=== PATIENT | female | born 1930 ===

== ENCOUNTER 2018-07-13 18:36 | Inpatient (IN) | payer MEDICARE ==
[~2018-07-13] VITALS: Ht 157.5 cm; Wt 61.7 kg
--- NOTE | 2018-07-13 22:48 | PDOC ---
Exam Note: Gume Note: Please also refer to the separate dictated note~for this date of service dictated separately. Discussed the patient with Nursing staff reviewed the chart.~Reviewed interim history and current functioning. Reviewed vital signs,~ Labs/ Radiology~and current medications noted below. Continue current treatment with the changes noted in the dictated addendum note Current Medications: I have reviewed the current psychotropics carefully including drug interactions. Risk benefit ratio favors no change other than as noted in my dictated progress note. JUAN PABLO GUTIERREZ MD Jul 13, 2018 22:48
[2018-07-13 23:24] VITALS: BP 166/76
[2018-07-13] MEDS ORDERED: MAGNESIUM HYDROXIDE 2,400 MG/30 ML ORAL.SUSP. PO PRN (23:30)
[2018-07-13] MEDS ORDERED: ACETAMINOPHEN 325 MG TABLET PO PRN (23:30)
[2018-07-13] MEDS ORDERED: MAG HYDROX/AL HYDROX/SIMETH 30 ML ORAL.SUSP PO PRN (23:30)
[2018-07-13] MEDS ORDERED: METHYL SALICYLATE/MENTHOL TOPICAL OINTMENT 29GM TUBE. TP PRN (23:30)
[2018-07-13] MEDS ORDERED: TRAM50TA PO (23:46)
[2018-07-13] MEDS ORDERED: HYDR-3165 PO (23:46)
[2018-07-13] MEDS ORDERED: IRON1CAP17 PO (23:46)
[2018-07-13] MEDS ORDERED: CITA20TA9 PO (23:46)
[2018-07-13] MEDS ORDERED: DONE10TA61 PO (23:46)
[2018-07-13] MEDS ORDERED: VENL150T PO (23:46)
[2018-07-13] MEDS ORDERED: PANT40TA3 PO (23:46)
[2018-07-13] MEDS ORDERED: MULT1TAB52 PO (23:46)
[2018-07-13] MEDS ORDERED: CYAN10005 PO (23:46)
[2018-07-13] MEDS ORDERED: MEMA10TA PO (23:46)
[2018-07-13] MEDS ORDERED: LEVO100T5 PO (23:46)
[2018-07-13] MEDS ORDERED: FURO20TA3 PO (23:46)
[2018-07-14] MEDS ORDERED: traMADol 50 MG TABLET PO PRN (01:15)
[2018-07-14 05:47] VITALS: BP 138/68
[2018-07-14 07:22] LABS: ALBUMIN 2.3 g/dL (3.4-5.0); ALBUMIN/GLOBULIN RATIO 0.7 (1.0-1.7); BASO % 0 % (0-3); CREATININE 0.9 mg/dL (0.6-1.0); EOS # 0.1 x10^3/uL (0.0-0.7); EOS % 3 % (0-3); GFR 59.4; HEMATOCRIT 28.7 % (36.0-47.0); HEMOGLOBIN 9.8 g/dL (12.0-15.5); LYMPH # 0.9 x10^3/uL (1.0-4.8); LYMPH % 31 % (24-48); MAGNESIUM 1.6 mg/dL (1.8-2.4); MEAN CORPUSCULAR HEMOGLOBIN 35 pg (25-35); MEAN CORPUSCULAR HGB CONC 34 g/dL (31-37); MEAN CORPUSCULAR VOLUME 103 fL (79-100); MONO # 0.4 x10^3/uL (0.0-1.1); MONO % 13 % (0-9); NEUT # 1.5 x10^3uL (1.8-7.7); NEUT % 53 % (31-73); PLATELET COUNT 65 x10^3/uL (140-400); POTASSIUM 3.6 mmol/L (3.5-5.1); RED CELL DISTRIBUTION WIDTH 13.4 % (11.5-14.5); TOTAL BILIRUBIN 0.7 mg/dL (0.2-1.0); TOTAL PROTEIN 5.8 g/dL (6.4-8.2); WHITE BLOOD COUNT 2.9 x10^3/uL (4.0-11.0)
[2018-07-14] MEDS ORDERED: LEVOTHYROXINE 100 MCG TABLET PO SCH (07:30)
[2018-07-14] MEDS: MEMANTINE 10 MG TABLET. PO SCH (08:12)
[2018-07-14] MEDS: MULTIVITAMIN with MINERAL TABLET. PO SCH (08:12)
[2018-07-14] MEDS: FUROSEMIDE 20 MG TABLET PO SCH (08:12)
[2018-07-14] MEDS: CYANOCOBALAMIN (VITAMIN B-12) 1,000 MCG TABLET. PO SCH (08:12)
[2018-07-14] MEDS: VENLAFAXINE 50 MG TABLET. PO SCH ×3 (08:12→19:26)
[2018-07-14] MEDS: DONEPEZIL HCL 10 MG TABLET PO SCH (08:13)
[2018-07-14] MEDS: VIT C PO SCH (08:33)
[2018-07-14] MEDS: SMZ/TMP 800/160MG TABLET. PO SCH ×2 (08:33→19:26)
[2018-07-14] MEDS: PS CMP PO SCH (08:33)
[2018-07-14] MEDS: CITALOPRAM 20 MG TABLET. PO SCH (08:33)
[2018-07-14] MEDS: PANTOPRAZOLE 40 MG TABLET. PO SCH ×2 (08:33→17:15)
[2018-07-14] MEDS: IRON FUM PO SCH (08:33)
[2018-07-14] MEDS: [UNRECOGNIZED DRUG - OTHER] PO SCH (08:33)
[2018-07-14] MEDS: B3 PO SCH (08:33)
[2018-07-14 16:10] VITALS: BP 128/52
[2018-07-14 18:28] LABS: THYROID STIM HORMONE (TSH) 0.111 uIU/mL (0.358-3.740)
--- NOTE | 2018-07-14 18:51 | PDOC2 ---
CONSULT Date of Admission DATE: 07/14/18 TIME: 18:43 Reason for Consult: Consult for medical management Referring Physician: Dr Balderas Chief Complaint Suicidal ideation and plan for self harm Source: Chart review Problem List Bipolar disorder , dementia History of Present Illness She lives with her daughter and started having SI with paln to harm herself, paranoid Cardiovascular: AFIB, CHF, HTN, hyperipidemia CENTRAL NERVOUS SYSTEM: Periperal neuropathy GI: GERD Past Surgical History: No pertinent history Family History: Other Smoke: No ALCOHOL: none Lives: with Family Current Medications Current Medications Acetaminophen (Tylenol) 650 mg PRN Q6HRS PRN PO PAIN / TEMP; Start 07/13/18 at 23:30 Multi-Ingredient Ointment (Analgesic [place]) 1 eleazar PRN QID PRN TP MUSCLE PAIN; Start 07/13/18 at 23:30 Al Hydroxide/Mg Hydroxide (Mylanta Plus Xs) 15 ml PRN AFTMEALHC PRN PO DYSPEPSIA; Start 07/13/18 at 23:30 Magnesium Hydroxide (Milk Of Magnesia) 2,400 mg PRN QHS PRN PO CONSTIPATION; Start 07/13/18 at 23:30 Citalopram Hydrobromide (CeleXA) 20 mg DAILY PO Last administered on at 08:33; Start 07/14/18 at 09:00 Cyanocobalamin (Vitamin B-12) 1,000 mcg DAILY PO Last administered on at 08:12; Start 07/14/18 at 09:00 Levothyroxine Sodium (Synthroid) 100 mcg DAILYAC PO Last administered on at 08:12; Start 07/14/18 at 07:30 Donepezil HCl (Aricept) 10 mg DAILY PO Last administered on 07/14/18at 08:13; Start 07/14/18 at 09:00 Memantine (Namenda) 10 mg DAILY PO Last administered on 07/14/18at 08:12; Start 07/14/18 at 09:00 Pantoprazole Sodium (Protonix) 40 mg BIDBFRMEAL PO Last administered on at 17:15; Start 07/14/18 at 07:30 Venlafaxine HCl (Effexor) 50 mg TID PO Last administered on 07/14/18at 14:33; Start 07/14/18 at 09:00 Furosemide (Lasix) 20 mg DAILY PO Last administered on 07/14/18at 08:12; Start 07/14/18 at 09:00 Tramadol HCl (Ultram) 50 mg PRN TID PRN PO PAIN; Start 07/14/18 at 01:15 Acetaminophen/ Hydrocodone Bitart (Lortab 5/325) 1 tab PRN Q6HRS PRN PO PAIN; Start 07/14/18 at 01:15 Non-Formulary Medication (Iron Fum & Ps Cmp/Fa/Vit C/B3 (Integra F Capsule)) 1 each DAILY PO ; Start 07/14/18 at 09:00; Status UNV Multivitamins/ Calcium (Thera-M Plus) 1 tab DAILY PO Last administered on 07/14at 08:12; Start 07/14/18 at 09:00 Trimethoprim/ Sulfamethoxazole (Bactrim Ds) 1 tab BID PO Last administered on 07/14/18at 08:33; Start 07/14/18 at 09:00 Active Scripts Active Reported Multivitamins (Multivitamin) 1 Each Tablet 1 Each PO DAILY Levothyroxine Sodium 100 Mcg Tablet 100 Mcg PO DAILYAC Vitamin B-12 (Cyanocobalamin (Vitamin B-12)) 1,000 Mcg Tablet 1,000 Mcg PO DAILY Celexa (Citalopram Hydrobromide) 20 Mg Tablet 20 Mg PO DAILY Tramadol Hcl (Tramadol HCl) 50 Mg Tablet 50 Mg PO PRN TID PRN Integra F Capsule (Iron Fum & Ps Cmp/Fa/Vit C/B3) 1 Each Capsule 1 Each PO DAILY Namenda (Memantine Hcl) 10 Mg Tablet 10 Mg PO DAILY Aricept (Donepezil Hcl) 10 Mg Tablet 10 Mg PO DAILY [place] 5-325 Tablet (Hydrocodone Bit/Acetaminophen) 1 Each Tablet 1 Tab PO PRN Q6HRS PRN Protonix (Pantoprazole Sodium) 40 Mg Tablet.dr 40 Mg PO BID Furosemide 20 Mg Tablet 20 Mg PO PRN DAILY PRN Venlafaxine Hcl Er (Venlafaxine Hcl) 150 Mg Tab.er.24 150 Mg PO DAILY Allergies: Coded Allergies: loratadine (Verified Allergy, Intermediate, 07/13/18) General: No acute distress HEENT: Atraumatic, PERRLA, EOMI, Mucous membr. moist/pink Heart: Regular rate Abdomen: Normal bowel sounds Extremities: No edema, Normal pulses VITALS Vital Signs Date Time Temp Pulse Resp B/P (MAP) Pulse Ox O2 Delivery O2 Flow Rate FiO2 07/14/18 16:10 97.8 77 20 128/52 (77) 96 Labs Laboratory Tests Test 07/14/18 06:15 White Blood Count 2.9 x10^3/uL (4.0-11.0) Red Blood Count 2.80 x10^6/uL (3.50-5.40) Hemoglobin 9.8 g/dL (12.0-15.5) Hematocrit 28.7 % (36.0-47.0) Mean Corpuscular Volume 103 fL (79-100) Mean Corpuscular Hemoglobin 35 pg (25-35) Mean Corpuscular Hemoglobin Concent 34 g/dL (31-37) Red Cell Distribution Width 13.4 % (11.5-14.5) Platelet Count 65 x10^3/uL (140-400) Neutrophils (%) (Auto) 53 % (31-73) Lymphocytes (%) (Auto) 31 % (24-48) Monocytes (%) (Auto) 13 % (0-9) Eosinophils (%) (Auto) 3 % (0-3) Basophils (%) (Auto) 0 % (0-3) Neutrophils # (Auto) 1.5 x10^3uL (1.8-7.7) Lymphocytes # (Auto) 0.9 x10^3/uL (1.0-4.8) Monocytes # (Auto) 0.4 x10^3/uL (0.0-1.1) Eosinophils # (Auto) 0.1 x10^3/uL (0.0-0.7) Basophils # (Auto) 0.0 x10^3/uL (0.0-0.2) Sodium Level 147 mmol/L (136-145) Potassium Level 3.6 mmol/L (3.5-5.1) Chloride Level 113 mmol/L (98-107) Carbon Dioxide Level 26 mmol/L (21-32) Anion Gap 8 (6-14) Blood Urea Nitrogen 11 mg/dL (7-20) Creatinine 0.9 mg/dL (0.6-1.0) Estimated GFR (Cockcroft-Gault) 59.4 BUN/Creatinine Ratio 12 (6-20) Glucose Level 80 mg/dL (70-99) Calcium Level 8.0 mg/dL (8.5-10.1) Magnesium Level 1.6 mg/dL (1.8-2.4) Iron Level 55 ug/dL (50-170) Total Iron Binding Capacity 162 ug/dL (250-450) Iron Saturation 34 % (15-34) Total Bilirubin 0.7 mg/dL (0.2-1.0) Aspartate Amino Transf (AST/SGOT) 41 U/L (15-37) Alanine Aminotransferase (ALT/SGPT) 20 U/L (14-59) Alkaline Phosphatase 118 U/L (46-116) Total Protein 5.8 g/dL (6.4-8.2) Albumin 2.3 g/dL (3.4-5.0) Albumin/Globulin Ratio 0.7 (1.0-1.7) Triglycerides Level 32 mg/dL (0-150) Cholesterol Level 148 mg/dL (0-200) LDL Cholesterol, Calculated 86 mg/dL (0-100) VLDL Cholesterol, Calculated 6 mg/dL (0-40) Non-HDL Cholesterol Calculated 92 mg/dL (0-129) HDL Cholesterol 56 mg/dL (40-60) Cholesterol/HDL Ratio 2.0 Vitamin B12 Level 1302 pg/mL (247-911) 25-Hydroxy Vitamin D Total 38.3 ng/mL (30-100) Thyroid Stimulating Hormone (TSH) 0.111 uIU/mL (0.358-3.740) Treponema pallidum Antibody Nonreactive (Nonreactive) Assessment/Plan Pancytopenia thyrotoxicosis FABIOLA PHELAN MD Jul 14, 2018 18:51
[2018-07-14 20:12] LABS: THYROXINE 4.5 ug/dL (4.5-12.0)
--- NOTE | 2018-07-14 22:44 | PDOC ---
Exam Note: Gume Note: Please also refer to the separate dictated note~for this date of service dictated separately.~Patient seen individually. Discussed the patient with Nursing staff reviewed the chart.~Reviewed interim history and current functioning. Reviewed vital signs,~Labs/ Radiology~and current medications noted below. Continue current treatment with the changes noted in the dictated addendum note Assessment: Vital Signs: Vital Signs Date Time Temp Pulse Resp B/P (MAP) Pulse Ox O2 Delivery O2 Flow Rate FiO2 07/14/18 16:10 97.8 77 20 128/52 (77) 96 Labs: Laboratory Tests Test 07/14/18 06:15 White Blood Count 2.9 x10^3/uL (4.0-11.0) L Red Blood Count 2.80 x10^6/uL (3.50-5.40) L Hemoglobin 9.8 g/dL (12.0-15.5) L Hematocrit 28.7 % (36.0-47.0) L Mean Corpuscular Volume 103 fL (79-100) H Mean Corpuscular Hemoglobin 35 pg (25-35) Mean Corpuscular Hemoglobin Concent 34 g/dL (31-37) Red Cell Distribution Width 13.4 % (11.5-14.5) Platelet Count 65 x10^3/uL (140-400) L Neutrophils (%) (Auto) 53 % (31-73) Lymphocytes (%) (Auto) 31 % (24-48) Monocytes (%) (Auto) 13 % (0-9) H Eosinophils (%) (Auto) 3 % (0-3) Basophils (%) (Auto) 0 % (0-3) Neutrophils # (Auto) 1.5 x10^3uL (1.8-7.7) L Lymphocytes # (Auto) 0.9 x10^3/uL (1.0-4.8) L Monocytes # (Auto) 0.4 x10^3/uL (0.0-1.1) Eosinophils # (Auto) 0.1 x10^3/uL (0.0-0.7) Basophils # (Auto) 0.0 x10^3/uL (0.0-0.2) Sodium Level 147 mmol/L (136-145) H Potassium Level 3.6 mmol/L (3.5-5.1) Chloride Level 113 mmol/L (98-107) H Carbon Dioxide Level 26 mmol/L (21-32) Anion Gap 8 (6-14) Blood Urea Nitrogen 11 mg/dL (7-20) Creatinine 0.9 mg/dL (0.6-1.0) Estimated GFR (Cockcroft-Gault) 59.4 BUN/Creatinine Ratio 12 (6-20) Glucose Level 80 mg/dL (70-99) Calcium Level 8.0 mg/dL (8.5-10.1) L Magnesium Level 1.6 mg/dL (1.8-2.4) L Iron Level 55 ug/dL (50-170) Total Iron Binding Capacity 162 ug/dL (250-450) L Iron Saturation 34 % (15-34) Total Bilirubin 0.7 mg/dL (0.2-1.0) Aspartate Amino Transferase (AST) 41 U/L (15-37) H Alanine Aminotransferase (ALT) 20 U/L (14-59) Alkaline Phosphatase 118 U/L (46-116) H Total Protein 5.8 g/dL (6.4-8.2) L Albumin 2.3 g/dL (3.4-5.0) L Albumin/Globulin Ratio 0.7 (1.0-1.7) L Triglycerides Level 32 mg/dL (0-150) Cholesterol Level 148 mg/dL (0-200) LDL Cholesterol, Calculated 86 mg/dL (0-100) VLDL Cholesterol, Calculated 6 mg/dL (0-40) Non-HDL Cholesterol Calculated 92 mg/dL (0-129) HDL Cholesterol 56 mg/dL (40-60) Cholesterol/HDL Ratio 2.0 Vitamin B12 Level 1302 pg/mL (247-911) H 25-Hydroxy Vitamin D Total 38.3 ng/mL (30-100) Thyroid Stimulating Hormone (TSH) 0.111 uIU/mL (0.358-3.740) Thyroxine (T4) 4.5 ug/dL (4.5-12.0) Total Triiodothyronine (TT3) 70 ng/dL (71-180) L Treponema pallidum Antibody Nonreactive (Nonreactive) Current Medications: Meds: Current Medications Acetaminophen (Tylenol) 650 mg PRN Q6HRS PRN PO PAIN / TEMP; Start 07/13/18 at 23:30 Multi-Ingredient Ointment (Analgesic [place]) 1 eleazar PRN QID PRN TP MUSCLE PAIN; Start 07/13/18 at 23:30 Al Hydroxide/Mg Hydroxide (Mylanta Plus Xs) 15 ml PRN AFTMEALHC PRN PO DYSPEPSIA; Start 07/13/18 at 23:30 Magnesium Hydroxide (Milk Of Magnesia) 2,400 mg PRN QHS PRN PO CONSTIPATION; Start 07/13/18 at 23:30 Citalopram Hydrobromide (CeleXA) 20 mg DAILY PO Last administered on at 08:33; Start 07/14/18 at 09:00 Cyanocobalamin (Vitamin B-12) 1,000 mcg DAILY PO Last administered on at 08:12; Start 07/14/18 at 09:00 Levothyroxine Sodium (Synthroid) 100 mcg DAILYAC PO Last administered on at 08:12; Start 07/14/18 at 07:30; Stop 07/14/18 at 18:53; Status DC Donepezil HCl (Aricept) 10 mg DAILY PO Last administered on 07/14/18at 08:13; Start 07/14/18 at 09:00 Memantine (Namenda) 10 mg DAILY PO Last administered on 07/14/18at 08:12; Start 07/14/18 at 09:00 Pantoprazole Sodium (Protonix) 40 mg BIDBFRMEAL PO Last administered on at 17:15; Start 07/14/18 at 07:30 Venlafaxine HCl (Effexor) 50 mg TID PO Last administered on 07/14/18at 19:26; Start 07/14/18 at 09:00 Furosemide (Lasix) 20 mg DAILY PO Last administered on 07/14/18at 08:12; Start 07/14/18 at 09:00 Tramadol HCl (Ultram) 50 mg PRN TID PRN PO PAIN; Start 07/14/18 at 01:15 Acetaminophen/ Hydrocodone Bitart (Lortab 5/325) 1 tab PRN Q6HRS PRN PO PAIN; Start 07/14/18 at 01:15 Non-Formulary Medication (Iron Fum & Ps Cmp/Fa/Vit C/B3 (Integra F Capsule)) 1 each DAILY PO ; Start 07/14/18 at 09:00; Status UNV Multivitamins/ Calcium (Thera-M Plus) 1 tab DAILY PO Last administered on 07/14at 08:12; Start 07/14/18 at 09:00 Trimethoprim/ Sulfamethoxazole (Bactrim Ds) 1 tab BID PO Last administered on 07/14/18at 19:26; Start 07/14/18 at 09:00 Levothyroxine Sodium (Synthroid) 50 mcg DAILY06 PO ; Start 07/15/18 at 06:00 Active Scripts Active Reported Multivitamins (Multivitamin) 1 Each Tablet 1 Each PO DAILY Levothyroxine Sodium 100 Mcg Tablet 100 Mcg PO DAILYAC Vitamin B-12 (Cyanocobalamin (Vitamin B-12)) 1,000 Mcg Tablet 1,000 Mcg PO DAILY Celexa (Citalopram Hydrobromide) 20 Mg Tablet 20 Mg PO DAILY Tramadol Hcl (Tramadol HCl) 50 Mg Tablet 50 Mg PO PRN TID PRN Integra F Capsule (Iron Fum & Ps Cmp/Fa/Vit C/B3) 1 Each Capsule 1 Each PO DAILY Namenda (Memantine Hcl) 10 Mg Tablet 10 Mg PO DAILY Aricept (Donepezil Hcl) 10 Mg Tablet 10 Mg PO DAILY [place] 5-325 Tablet (Hydrocodone Bit/Acetaminophen) 1 Each Tablet 1 Tab PO PRN Q6HRS PRN Protonix (Pantoprazole Sodium) 40 Mg Tablet.dr 40 Mg PO BID Furosemide 20 Mg Tablet 20 Mg PO PRN DAILY PRN Venlafaxine Hcl Er (Venlafaxine Hcl) 150 Mg Tab.er.24 150 Mg PO DAILY I have reviewed the current psychotropics carefully including drug interactions. Risk benefit ratio favors no change other than as noted in my dictated progress note. Diagnosis: Problems: (1) Anxiety disorder (2) Bipolar affective disorder, mixed (3) Dementia, vascular, with delusions (4) Dementia, vascular, with depression (5) Dementia in Alzheimer's disease with delusions (6) Dementia in Alzheimer's disease with depression (7) Impulse control disorder JUAN PABLO GUTIERREZ MD Jul 14, 2018 22:43
[2018-07-15 00:10] LABS: HEMOGLOBIN A1C <4.2 % (4.8-5.6)
[2018-07-15] MEDS: LEVOTHYROXINE 50 MCG TABLET PO SCH (04:55)
--- NOTE | 2018-07-15 05:35 | EKG ---
[address] [address] Test Date: 2018-07-14 Test Time: 04:36:49 Pat Name: KRIA LUCAS Department: Room: [address] [place] [address] Gender: F Events Administrative Assistant: YOGI : [id number] Requested By: JUAN PABLO GUTIERREZ Order Number: [id number] Reading MD: Vineet Whitt Measurements Intervals Success Rate: 83 P: 90 NE: 170 QRS: -13 QRSD: 84 T: 38 QT: 414 QTc: 487 Interpretive Statements SINUS RHYTHM VENTRICULAR PREMATURE COMPLEX(ES) LEFTWARD AXIS LOW LIMB LEAD VOLTAGE Electronically Signed On 07-20-2018 11:45:22 PUMPER GAGER APPRENTICE by Vineet Whitt
[2018-07-15 06:03] VITALS: BP 120/51
[2018-07-15] MEDS: PANTOPRAZOLE 40 MG TABLET. PO SCH ×2 (07:29→13:09)
[2018-07-15] MEDS: MULTIVITAMIN with MINERAL TABLET. PO SCH (07:29)
[2018-07-15] MEDS: DONEPEZIL HCL 10 MG TABLET PO SCH (07:29)
[2018-07-15] MEDS: MEMANTINE 10 MG TABLET. PO SCH (07:29)
[2018-07-15] MEDS: VENLAFAXINE 50 MG TABLET. PO SCH ×3 (07:29→19:41)
[2018-07-15] MEDS: SMZ/TMP 800/160MG TABLET. PO SCH (07:29)
[2018-07-15] MEDS: CYANOCOBALAMIN (VITAMIN B-12) 1,000 MCG TABLET. PO SCH (07:30)
[2018-07-15] MEDS: B3 PO SCH (07:30)
[2018-07-15] MEDS: [UNRECOGNIZED DRUG - OTHER] PO SCH (07:30)
[2018-07-15] MEDS: PS CMP PO SCH (07:30)
[2018-07-15] MEDS: IRON FUM PO SCH (07:30)
[2018-07-15] MEDS: CITALOPRAM 20 MG TABLET. PO SCH (07:30)
[2018-07-15] MEDS: FUROSEMIDE 20 MG TABLET PO SCH (07:30)
[2018-07-15] MEDS: VIT C PO SCH (07:30)
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
[2018-07-15] MEDS: LACTOBACILLUS RHAMNOSUS GG 1 CAPSULE. PO SCH ×2 (13:09→19:41)
--- NOTE | 2018-07-15 16:13 | RAD ---
CT HEAD INDICATION: MENTAL STATUS CHANGE COMPARISON: None Available. Exposure: One or more of the following individualized dose reduction techniques were utilized for this examination: 1. Automated exposure control 2. Adjustment of the mA and/or kV according to patient size 3. Use of iterative reconstruction technique TECHNIQUE: 5 mm contiguous axial images were obtained from the skull base to the vertex in both bone and soft tissue algorithm. FINDINGS: Mild bilateral periventricular white matter hypodensities likely chronic small vessel ischemic disease. No evidence of acute intracranial hemorrhage. No extra-axial fluid collections. No mass effect or midline shift. Ventricular size is appropriate. Basal cisterns are patent. No fractures identified.Graham-white differentiation is preserved.Globes and orbits are within normal limits. Paranasal sinuses and mastoid air cells are clear. IMPRESSION: No acute intracranial findings. Electronically signed by: Hubert Becker MD (07/15/2018 3:01 PM) [place] [id number]
[2018-07-15 16:38] VITALS: BP 122/68
[2018-07-15] MEDS: FERROUS SULFATE 325 MG TABLET. PO SCH (17:35)
[2018-07-15] MEDS: AMOXICILLIN 250 MG CAPSULE PO SCH (19:42)
--- NOTE | 2018-07-15 22:52 | PDOC ---
Exam Note: Gume Note: Please also refer to the separate dictated note~for this date of service dictated separately.~Patient seen individually. Discussed the patient with Nursing staff reviewed the chart.~Reviewed interim history and current functioning. Reviewed vital signs,~Labs/ Radiology~and current medications noted below. Continue current treatment with the changes noted in the dictated addendum note Assessment: Vital Signs: Vital Signs Date Time Temp Pulse Resp B/P (MAP) Pulse Ox O2 Delivery O2 Flow Rate FiO2 07/15/18 16:38 98.2 76 18 122/68 (86) 96 Room Air I&O Intake and Output 07/15/18 07:01 Intake Total 960 ml Balance 960 ml Intake Oral 960 ml Current Medications: Meds: Current Medications Acetaminophen (Tylenol) 650 mg PRN Q6HRS PRN PO PAIN / TEMP; Start 07/13/18 at 23:30 Multi-Ingredient Ointment (Analgesic [place]) 1 eleazar PRN QID PRN TP MUSCLE PAIN; Start 07/13/18 at 23:30 Al Hydroxide/Mg Hydroxide (Mylanta Plus Xs) 15 ml PRN AFTMEALHC PRN PO DYSPEPSIA; Start 07/13/18 at 23:30 Magnesium Hydroxide (Milk Of Magnesia) 2,400 mg PRN QHS PRN PO CONSTIPATION; Start 07/13/18 at 23:30 Citalopram Hydrobromide (CeleXA) 20 mg DAILY PO Last administered on at 07:30; Start 07/14/18 at 09:00; Stop 07/15/18 at 13:37; Status DC Cyanocobalamin (Vitamin B-12) 1,000 mcg DAILY PO Last administered on at 07:30; Start 07/14/18 at 09:00 Levothyroxine Sodium (Synthroid) 100 mcg DAILYAC PO Last administered on at 08:12; Start 07/14/18 at 07:30; Stop 07/14/18 at 18:53; Status DC Donepezil HCl (Aricept) 10 mg DAILY PO Last administered on 07/15/18at 07:29; Start 07/14/18 at 09:00 Memantine (Namenda) 10 mg DAILY PO Last administered on 07/15/18at 07:29; Start 07/14/18 at 09:00 Pantoprazole Sodium (Protonix) 40 mg BIDBFRMEAL PO Last administered on at 13:09; Start 07/14/18 at 07:30 Venlafaxine HCl (Effexor) 50 mg TID PO Last administered on 07/15/18at 19:41; Start 07/14/18 at 09:00 Furosemide (Lasix) 20 mg DAILY PO Last administered on 07/15/18at 07:30; Start 07/14/18 at 09:00 Tramadol HCl (Ultram) 50 mg PRN TID PRN PO PAIN; Start 07/14/18 at 01:15 Acetaminophen/ Hydrocodone Bitart (Lortab 5/325) 1 tab PRN Q6HRS PRN PO PAIN; Start 07/14/18 at 01:15 Non-Formulary Medication (Iron Fum & Ps Cmp/Fa/Vit C/B3 (Integra F Capsule)) 1 each DAILY PO ; Start 07/14/18 at 09:00; Stop 07/15/18 at 16:24; Status DC Multivitamins/ Calcium (Thera-M Plus) 1 tab DAILY PO Last administered on 07/15 07:29; Start 07/14/18 at 09:00 Trimethoprim/ Sulfamethoxazole (Bactrim Ds) 1 tab BID PO Last administered on 07/15/18at 07:29; Start 07/14/18 at 09:00; Stop 07/15/18 at 18:43; Status DC Levothyroxine Sodium (Synthroid) 50 mcg DAILY06 PO Last administered on at 04:55; Start 07/15/18 at 06:00 Lactobacillus Rhamnosus (Culturelle) 1 cap BID PO Last administered on 19:41; Start 07/15/18 at 09:00 Aripiprazole (Abilify) 2.5 mg DAILY PO ; Start 07/16/18 at 09:00 Ferrous Sulfate (Feosol) 325 mg BIDWMEALS PO Last administered on 07/15/18 17 :35; Start 07/15/18 at 17:00 Amoxicillin (Amoxil) 250 mg [id number] PO Last administered on 07/15/18 19:42; Start 07/15/18 at 21:00; Stop 07/22/18 at 22:00 Active Scripts Active Reported Multivitamins (Multivitamin) 1 Each Tablet 1 Each PO DAILY Levothyroxine Sodium 100 Mcg Tablet 100 Mcg PO DAILYAC Vitamin B-12 (Cyanocobalamin (Vitamin B-12)) 1,000 Mcg Tablet 1,000 Mcg PO DAILY Celexa (Citalopram Hydrobromide) 20 Mg Tablet 20 Mg PO DAILY Tramadol Hcl (Tramadol HCl) 50 Mg Tablet 50 Mg PO PRN TID PRN Integra F Capsule (Iron Fum & Ps Cmp/Fa/Vit C/B3) 1 Each Capsule 1 Each PO DAILY Namenda (Memantine Hcl) 10 Mg Tablet 10 Mg PO DAILY Aricept (Donepezil Hcl) 10 Mg Tablet 10 Mg PO DAILY [place] 5-325 Tablet (Hydrocodone Bit/Acetaminophen) 1 Each Tablet 1 Tab PO PRN Q6HRS PRN Protonix (Pantoprazole Sodium) 40 Mg Tablet.dr 40 Mg PO BID Furosemide 20 Mg Tablet 20 Mg PO PRN DAILY PRN Venlafaxine Hcl Er (Venlafaxine Hcl) 150 Mg Tab.er.24 150 Mg PO DAILY I have reviewed the current psychotropics carefully including drug interactions. Risk benefit ratio favors no change other than as noted in my dictated progress note. Diagnosis: Problems: (1) Anxiety disorder (2) Bipolar affective disorder, mixed (3) Dementia, vascular, with delusions (4) Dementia, vascular, with depression (5) Dementia in Alzheimer's disease with delusions (6) Dementia in Alzheimer's disease with depression (7) Impulse control disorder JUAN PABLO GUTIERREZ MD Jul 15, 2018 22:52
[2018-07-16] MEDS: LEVOTHYROXINE 50 MCG TABLET PO SCH (04:53)
[2018-07-16 05:42] VITALS: BP 156/64
[2018-07-16] MEDS: AMOXICILLIN 250 MG CAPSULE PO SCH ×3 (07:28→20:18)
[2018-07-16] MEDS: FERROUS SULFATE 325 MG TABLET. PO SCH ×2 (07:29→17:33)
[2018-07-16] MEDS: PANTOPRAZOLE 40 MG TABLET. PO SCH ×2 (07:29→16:30)
[2018-07-16] MEDS: MEMANTINE 10 MG TABLET. PO SCH ×3 (07:29→21:00)
[2018-07-16] MEDS: VENLAFAXINE 50 MG TABLET. PO SCH ×3 (07:29→20:17)
[2018-07-16] MEDS: CYANOCOBALAMIN (VITAMIN B-12) 1,000 MCG TABLET. PO SCH (07:29)
[2018-07-16] MEDS: DONEPEZIL HCL 10 MG TABLET PO SCH (07:29)
[2018-07-16] MEDS: LACTOBACILLUS RHAMNOSUS GG 1 CAPSULE. PO SCH ×2 (07:29→20:18)
[2018-07-16] MEDS: FUROSEMIDE 20 MG TABLET PO SCH (07:29)
[2018-07-16] MEDS: MULTIVITAMIN with MINERAL TABLET. PO SCH (07:29)
[2018-07-16] MEDS: ARIPiprazole 5 MG TABLET PO SCH (07:37)
[2018-07-16 15:45] VITALS: BP 114/59
--- NOTE | 2018-07-16 22:02 | PDOC ---
Exam Note: Gume Note: Please also refer to the separate dictated note~for this date of service dictated separately.~Patient seen individually. Discussed the patient with Nursing staff reviewed the chart.~Reviewed interim history and current functioning. Reviewed vital signs,~Labs/ Radiology~and current medications noted below. Continue current treatment with the changes noted in the dictated addendum note Assessment: Vital Signs: Vital Signs Date Time Temp Pulse Resp B/P (MAP) Pulse Ox O2 Delivery O2 Flow Rate FiO2 07/16/18 15:45 97.4 70 18 114/59 (77) 95 Room Air I&O Intake and Output 07/16/18 07:01 Intake Total 840 ml Balance 840 ml Intake Oral 840 ml Current Medications: Meds: Current Medications Acetaminophen (Tylenol) 650 mg PRN Q6HRS PRN PO PAIN / TEMP; Start 07/13/18 at 23:30 Multi-Ingredient Ointment (Analgesic [place]) 1 eleazar PRN QID PRN TP MUSCLE PAIN; Start 07/13/18 at 23:30 Al Hydroxide/Mg Hydroxide (Mylanta Plus Xs) 15 ml PRN AFTMEALHC PRN PO DYSPEPSIA; Start 07/13/18 at 23:30 Magnesium Hydroxide (Milk Of Magnesia) 2,400 mg PRN QHS PRN PO CONSTIPATION; Start 07/13/18 at 23:30 Citalopram Hydrobromide (CeleXA) 20 mg DAILY PO Last administered on at 07:30; Start 07/14/18 at 09:00; Stop 07/15/18 at 13:37; Status DC Cyanocobalamin (Vitamin B-12) 1,000 mcg DAILY PO Last administered on at 07:29; Start 07/14/18 at 09:00 Levothyroxine Sodium (Synthroid) 100 mcg DAILYAC PO Last administered on at 08:12; Start 07/14/18 at 07:30; Stop 07/14/18 at 18:53; Status DC Donepezil HCl (Aricept) 10 mg DAILY PO Last administered on 07/16/18at 07:29; Start 07/14/18 at 09:00 Memantine (Namenda) 10 mg DAILY PO Last administered on 07/16/18at 07:29; Start 07/14/18 at 09:00; Stop 07/16/18 at 20:19; Status DC Pantoprazole Sodium (Protonix) 40 mg BIDBFRMEAL PO Last administered on at 16:30; Start 07/14/18 at 07:30 Venlafaxine HCl (Effexor) 50 mg TID PO Last administered on 07/16/18at 20:17; Start 07/14/18 at 09:00 Furosemide (Lasix) 20 mg DAILY PO Last administered on 07/16/18at 07:29; Start 07/14/18 at 09:00 Tramadol HCl (Ultram) 50 mg PRN TID PRN PO PAIN; Start 07/14/18 at 01:15 Acetaminophen/ Hydrocodone Bitart (Lortab 5/325) 1 tab PRN Q6HRS PRN PO PAIN; Start 07/14/18 at 01:15 Non-Formulary Medication (Iron Fum & Ps Cmp/Fa/Vit C/B3 (Integra F Capsule)) 1 each DAILY PO ; Start 07/14/18 at 09:00; Stop 07/15/18 at 16:24; Status DC Multivitamins/ Calcium (Thera-M Plus) 1 tab DAILY PO Last administered on 07/16at 07:29; Start 07/14/18 at 09:00 Trimethoprim/ Sulfamethoxazole (Bactrim Ds) 1 tab BID PO Last administered on 07/15/18at 07:29; Start 07/14/18 at 09:00; Stop 07/15/18 at 18:43; Status DC Levothyroxine Sodium (Synthroid) 50 mcg DAILY06 PO Last administered on at 04:53; Start 07/15/18 at 06:00 Lactobacillus Rhamnosus (Culturelle) 1 cap BID PO Last administered on 20:18; Start 07/15/18 at 09:00 Aripiprazole (Abilify) 2.5 mg DAILY PO Last administered on 07/16/18at 07:37; Start 07/16/18 at 09:00 Ferrous Sulfate (Feosol) 325 mg BIDWMEALS PO Last administered on 07/16/18at 17 :33; Start 07/15/18 at 17:00 Amoxicillin (Amoxil) 250 mg [id number] PO Last administered on 12/29/18at 20:18; Start 07/15/18 at 21:00; Stop 07/22/18 at 22:00 Memantine (Namenda) 10 mg BID PO Last administered on 07/16/18at 20:27; Start 07/16/18 at 20:30 Active Scripts Active Reported Multivitamins (Multivitamin) 1 Each Tablet 1 Each PO DAILY Levothyroxine Sodium 100 Mcg Tablet 100 Mcg PO DAILYAC Vitamin B-12 (Cyanocobalamin (Vitamin B-12)) 1,000 Mcg Tablet 1,000 Mcg PO DAILY Celexa (Citalopram Hydrobromide) 20 Mg Tablet 20 Mg PO DAILY Tramadol Hcl (Tramadol HCl) 50 Mg Tablet 50 Mg PO PRN TID PRN Integra F Capsule (Iron Fum & Ps Cmp/Fa/Vit C/B3) 1 Each Capsule 1 Each PO DAILY Namenda (Memantine Hcl) 10 Mg Tablet 10 Mg PO DAILY Aricept (Donepezil Hcl) 10 Mg Tablet 10 Mg PO DAILY [place] 5-325 Tablet (Hydrocodone Bit/Acetaminophen) 1 Each Tablet 1 Tab PO PRN Q6HRS PRN Protonix (Pantoprazole Sodium) 40 Mg Tablet.dr 40 Mg PO BID Furosemide 20 Mg Tablet 20 Mg PO PRN DAILY PRN Venlafaxine Hcl Er (Venlafaxine Hcl) 150 Mg Tab.er.24 150 Mg PO DAILY I have reviewed the current psychotropics carefully including drug interactions. Risk benefit ratio favors no change other than as noted in my dictated progress note. Diagnosis: Problems: (1) Anxiety disorder (2) Bipolar affective disorder, mixed (3) Dementia, vascular, with delusions (4) Dementia, vascular, with depression (5) Dementia in Alzheimer's disease with delusions (6) Dementia in Alzheimer's disease with depression (7) Impulse control disorder JUAN PABLO GUTIERREZ MD Jul 16, 2018 22:02
[2018-07-17] MEDS: LEVOTHYROXINE 50 MCG TABLET PO SCH (06:12)
[2018-07-17 06:39] VITALS: BP 129/69
[2018-07-17] MEDS: VENLAFAXINE 50 MG TABLET. PO SCH ×3 (07:24→19:30)
[2018-07-17] MEDS: AMOXICILLIN 250 MG CAPSULE PO SCH ×3 (07:24→19:31)
[2018-07-17] MEDS: LACTOBACILLUS RHAMNOSUS GG 1 CAPSULE. PO SCH ×2 (07:24→19:30)
[2018-07-17] MEDS: MULTIVITAMIN with MINERAL TABLET. PO SCH (07:24)
[2018-07-17] MEDS: MEMANTINE 10 MG TABLET. PO SCH ×2 (07:24→19:30)
[2018-07-17] MEDS: FERROUS SULFATE 325 MG TABLET. PO SCH ×2 (07:24→17:00)
[2018-07-17] MEDS: DONEPEZIL HCL 10 MG TABLET PO SCH (07:24)
[2018-07-17] MEDS: CYANOCOBALAMIN (VITAMIN B-12) 1,000 MCG TABLET. PO SCH (07:25)
[2018-07-17] MEDS: FUROSEMIDE 20 MG TABLET PO SCH (07:25)
[2018-07-17] MEDS: ARIPiprazole 5 MG TABLET PO SCH (07:25)
[2018-07-17] MEDS: PANTOPRAZOLE 40 MG TABLET. PO SCH ×2 (07:25→17:00)
[2018-07-17 16:12] VITALS: BP 110/58
--- NOTE | 2018-07-17 23:14 | PDOC ---
Exam Note: Gume Note: Please also refer to the separate dictated note~for this date of service dictated separately.~Patient seen individually. Discussed the patient with Nursing staff reviewed the chart.~Reviewed interim history and current functioning. Reviewed vital signs,~Labs/ Radiology~and current medications noted below. Continue current treatment with the changes noted in the dictated addendum note Assessment: Vital Signs: Vital Signs Date Time Temp Pulse Resp B/P (MAP) Pulse Ox O2 Delivery O2 Flow Rate FiO2 07/17/18 16:12 98.2 70 19 110/58 (75) 94 07/17/18 06:39 Room Air 07/16/18 15:45 I&O Intake and Output 07/17/18 07:01 Intake Total 480 ml Balance 480 ml Intake Oral 480 ml # Bowel Movements 1 Current Medications: Meds: Current Medications Acetaminophen (Tylenol) 650 mg PRN Q6HRS PRN PO PAIN / TEMP; Start 07/13/18 at 23:30 Multi-Ingredient Ointment (Analgesic [place]) 1 eleazar PRN QID PRN TP MUSCLE PAIN; Start 07/13/18 at 23:30 Al Hydroxide/Mg Hydroxide (Mylanta Plus Xs) 15 ml PRN AFTMEALHC PRN PO DYSPEPSIA; Start 07/13/18 at 23:30 Magnesium Hydroxide (Milk Of Magnesia) 2,400 mg PRN QHS PRN PO CONSTIPATION; Start 07/13/18 at 23:30 Citalopram Hydrobromide (CeleXA) 20 mg DAILY PO Last administered on at 07:30; Start 07/14/18 at 09:00; Stop 07/15/18 at 13:37; Status DC Cyanocobalamin (Vitamin B-12) 1,000 mcg DAILY PO Last administered on at 07:25; Start 07/14/18 at 09:00 Levothyroxine Sodium (Synthroid) 100 mcg DAILYAC PO Last administered on at 08:12; Start 07/14/18 at 07:30; Stop 07/14/18 at 18:53; Status DC Donepezil HCl (Aricept) 10 mg DAILY PO Last administered on 07/17/18at 07:24; Start 07/14/18 at 09:00 Memantine (Namenda) 10 mg DAILY PO Last administered on 07/16/18 07:29; Start 07/14/18 at 09:00; Stop 07/16/18 at 20:19; Status DC Pantoprazole Sodium (Protonix) 40 mg BIDBFRMEAL PO Last administered on 17:00; Start 07/14/18 at 07:30 Venlafaxine HCl (Effexor) 50 mg TID PO Last administered on 07/17/18 19:30; Start 07/14/18 at 09:00; Stop 07/17/18 at 20:56; Status DC Furosemide (Lasix) 20 mg DAILY PO Last administered on 07/17/18 07:25; Start 07/14/18 at 09:00 Tramadol HCl (Ultram) 50 mg PRN TID PRN PO PAIN; Start 07/14/18 at 01:15 Acetaminophen/ Hydrocodone Bitart (Lortab 5/325) 1 tab PRN Q6HRS PRN PO PAIN; Start 07/14/18 at 01:15 Non-Formulary Medication (Iron Fum & Ps Cmp/Fa/Vit C/B3 (Integra F Capsule)) 1 each DAILY PO ; Start 07/14/18 at 09:00; Stop 07/15/18 at 16:24; Status DC Multivitamins/ Calcium (Thera-M Plus) 1 tab DAILY PO Last administered on 07/17at 07:24; Start 07/14/18 at 09:00 Trimethoprim/ Sulfamethoxazole (Bactrim Ds) 1 tab BID PO Last administered on 07/15/18 07:29; Start 07/14/18 at 09:00; Stop 07/15/18 at 18:43; Status DC Levothyroxine Sodium (Synthroid) 50 mcg DAILY06 PO Last administered on at 06:12; Start 07/15/18 at 06:00 Lactobacillus Rhamnosus (Culturelle) 1 cap BID PO Last administered on 19:30; Start 07/15/18 at 09:00 Aripiprazole (Abilify) 2.5 mg DAILY PO Last administered on 07/17/18 07:25; Start 07/16/18 at 09:00 Ferrous Sulfate (Feosol) 325 mg BIDWMEALS PO Last administered on 12/30/18at 17 :00; Start 07/15/18 at 17:00 Amoxicillin (Amoxil) 250 mg [id number] PO Last administered on 07/17/18at 19:31; Start 07/15/18 at 21:00; Stop 07/22/18 at 22:00 Memantine (Namenda) 10 mg BID PO Last administered on 07/17/18at 19:30; Start 07/16/18 at 20:30 Venlafaxine HCl (Effexor Xr) 150 mg DAILY PO ; Start 07/18/18 at 09:00 Active Scripts Active Reported Multivitamins (Multivitamin) 1 Each Tablet 1 Each PO DAILY Levothyroxine Sodium 100 Mcg Tablet 100 Mcg PO DAILYAC Vitamin B-12 (Cyanocobalamin (Vitamin B-12)) 1,000 Mcg Tablet 1,000 Mcg PO DAILY Celexa (Citalopram Hydrobromide) 20 Mg Tablet 20 Mg PO DAILY Tramadol Hcl (Tramadol HCl) 50 Mg Tablet 50 Mg PO PRN TID PRN Integra F Capsule (Iron Fum & Ps Cmp/Fa/Vit C/B3) 1 Each Capsule 1 Each PO DAILY Namenda (Memantine Hcl) 10 Mg Tablet 10 Mg PO DAILY Aricept (Donepezil Hcl) 10 Mg Tablet 10 Mg PO DAILY [place] 5-325 Tablet (Hydrocodone Bit/Acetaminophen) 1 Each Tablet 1 Tab PO PRN Q6HRS PRN Protonix (Pantoprazole Sodium) 40 Mg Tablet.dr 40 Mg PO BID Furosemide 20 Mg Tablet 20 Mg PO PRN DAILY PRN Venlafaxine Hcl Er (Venlafaxine Hcl) 150 Mg Tab.er.24 150 Mg PO DAILY I have reviewed the current psychotropics carefully including drug interactions. Risk benefit ratio favors no change other than as noted in my dictated progress note. Diagnosis: Problems: (1) Anxiety disorder (2) Bipolar affective disorder, mixed (3) Dementia, vascular, with delusions (4) Dementia, vascular, with depression (5) Dementia in Alzheimer's disease with delusions (6) Dementia in Alzheimer's disease with depression (7) Impulse control disorder JUAN PABLO GUTIERREZ MD Jul 17, 2018 23:14
[2018-07-18] MEDS: LEVOTHYROXINE 50 MCG TABLET PO SCH (05:03)
[2018-07-18 05:44] VITALS: BP 118/64
[2018-07-18] MEDS: AMOXICILLIN 250 MG CAPSULE PO SCH ×3 (07:35→20:07)
[2018-07-18] MEDS: PANTOPRAZOLE 40 MG TABLET. PO SCH ×2 (07:35→16:34)
[2018-07-18] MEDS: LACTOBACILLUS RHAMNOSUS GG 1 CAPSULE. PO SCH ×2 (07:36→20:08)
[2018-07-18] MEDS: MULTIVITAMIN with MINERAL TABLET. PO SCH (07:36)
[2018-07-18] MEDS: ARIPiprazole 5 MG TABLET PO SCH (07:36)
[2018-07-18] MEDS: CYANOCOBALAMIN (VITAMIN B-12) 1,000 MCG TABLET. PO SCH (07:36)
[2018-07-18] MEDS: DONEPEZIL HCL 10 MG TABLET PO SCH (07:37)
[2018-07-18] MEDS: FUROSEMIDE 20 MG TABLET PO SCH (07:37)
[2018-07-18] MEDS: FERROUS SULFATE 325 MG TABLET. PO SCH ×2 (07:37→16:34)
[2018-07-18] MEDS: MEMANTINE 10 MG TABLET. PO SCH ×2 (07:37→20:07)
[2018-07-18] MEDS: VENLAFAXINE XR 37.5 MG CAP.ER.24H. PO SCH (07:38)
[2018-07-18 16:50] VITALS: BP 127/66
--- NOTE | 2018-07-18 20:58 | PN ---
DATE: 07/15/2018 This is a late entry for 07/15/2018 and covers elements not covered in my initial note. SUBJECTIVE: I met with the patient in the evening in her room. She remains quite withdrawn and upset about her son-in-law and the interaction they had prior to her referral here and I processed this at length. REVIEW OF SYSTEMS: Ambulation impaired with walker. No CV, , pulmonary, eye, ENT system symptoms on review. MENTAL STATUS EXAM: Oriented to herself and situation. Speech coherent, abstraction fair, computation impaired, language function intact. Short term memory is impaired. The patient is quite delusional, believes her family stealing her money and the son-in-law used the "B" word. She often scratches her face and arms with anxiety, frustration. We will check a CT head. IMPRESSION: Major neurocognitive disorder, early Alzheimer, vascular with delusion bipolar 1 disorder, mixed with psychotic features. PLAN: Stop the Celexa given her bipolar history. Maintain Effexor 150 mg a day, Abilify 2.5 mg a day. Celexa has been stopped not so that we do not have mix it with Effexor. Rest unchanged including Aricept and Namenda. JUAN PABLO GUTIERREZ MD DR: AMILCAR/leighton JOB#: [id number] / [id number]
--- NOTE | 2018-07-18 22:47 | PDOC ---
Exam Note: Gume Note: Please also refer to the separate dictated note~for this date of service dictated separately.~Patient seen individually. Discussed the patient with Nursing staff reviewed the chart.~Reviewed interim history and current functioning. Reviewed vital signs,~Labs/ Radiology~and current medications noted below. Continue current treatment with the changes noted in the dictated addendum note Assessment: Vital Signs: Vital Signs Date Time Temp Pulse Resp B/P (MAP) Pulse Ox O2 Delivery O2 Flow Rate FiO2 07/18/18 16:50 97.1 78 18 127/66 (86) 99 07/17/18 06:39 Room Air 07/16/18 15:45 I&O Intake and Output 07/18/18 07:01 Intake Total 960 ml Balance 960 ml Intake Oral 960 ml Labs: Laboratory Tests Test 07/18/18 06:34 Free Thyroxine 0.86 ng/dL (0.76-1.46) Thyroxine (T4) 4.5 ug/dL (4.5-12.0) Current Medications: Meds: Current Medications Acetaminophen (Tylenol) 650 mg PRN Q6HRS PRN PO PAIN / TEMP; Start 07/13/18 at 23:30 Multi-Ingredient Ointment (Analgesic [place]) 1 eleazar PRN QID PRN TP MUSCLE PAIN; Start 07/13/18 at 23:30 Al Hydroxide/Mg Hydroxide (Mylanta Plus Xs) 15 ml PRN AFTMEALHC PRN PO DYSPEPSIA; Start 07/13/18 at 23:30 Magnesium Hydroxide (Milk Of Magnesia) 2,400 mg PRN QHS PRN PO CONSTIPATION; Start 07/13/18 at 23:30 Citalopram Hydrobromide (CeleXA) 20 mg DAILY PO Last administered on at 07:30; Start 07/14/18 at 09:00; Stop 07/15/18 at 13:37; Status DC Cyanocobalamin (Vitamin B-12) 1,000 mcg DAILY PO Last administered on at 07:36; Start 07/14/18 at 09:00 Levothyroxine Sodium (Synthroid) 100 mcg DAILYAC PO Last administered on at 08:12; Start 07/14/18 at 07:30; Stop 07/14/18 at 18:53; Status DC Donepezil HCl (Aricept) 10 mg DAILY PO Last administered on 07/18/18 07:37; Start 07/14/18 at 09:00 Memantine (Namenda) 10 mg DAILY PO Last administered on 07/16/18at 07:29; Start 07/14/18 at 09:00; Stop 07/16/18 at 20:19; Status DC Pantoprazole Sodium (Protonix) 40 mg BIDBFRMEAL PO Last administered on at 16:34; Start 07/14/18 at 07:30 Venlafaxine HCl (Effexor) 50 mg TID PO Last administered on 07/17/18 19:30; Start 07/14/18 at 09:00; Stop 07/17/18 at 20:56; Status DC Furosemide (Lasix) 20 mg DAILY PO Last administered on 07/18/18at 07:37; Start 07/14/18 at 09:00 Tramadol HCl (Ultram) 50 mg PRN TID PRN PO PAIN; Start 07/14/18 at 01:15 Acetaminophen/ Hydrocodone Bitart (Lortab 5/325) 1 tab PRN Q6HRS PRN PO PAIN; Start 07/14/18 at 01:15 Non-Formulary Medication (Iron Fum & Ps Cmp/Fa/Vit C/B3 (Integra F Capsule)) 1 each DAILY PO ; Start 07/14/18 at 09:00; Stop 07/15/18 at 16:24; Status DC Multivitamins/ Calcium (Thera-M Plus) 1 tab DAILY PO Last administered on 07/18at 07:36; Start 07/14/18 at 09:00 Trimethoprim/ Sulfamethoxazole (Bactrim Ds) 1 tab BID PO Last administered on 07/15/18at 07:29; Start 07/14/18 at 09:00; Stop 07/15/18 at 18:43; Status DC Levothyroxine Sodium (Synthroid) 50 mcg DAILY06 PO Last administered on 05:03; Start 07/15/18 at 06:00 Lactobacillus Rhamnosus (Culturelle) 1 cap BID PO Last administered on at 20:08; Start 07/15/18 at 09:00 Aripiprazole (Abilify) 2.5 mg DAILY PO Last administered on 07/18/18at 07:36; Start 07/16/18 at 09:00 Ferrous Sulfate (Feosol) 325 mg BIDWMEALS PO Last administered on 07/18/18at 16 :34; Start 07/15/18 at 17:00 Amoxicillin (Amoxil) 250 mg [id number] PO Last administered on 07/18/18at 20:07; Start 07/15/18 at 21:00; Stop 07/22/18 at 22:00 Memantine (Namenda) 10 mg BID PO Last administered on 07/18/18at 20:07; Start 07/16/18 at 20:30 Venlafaxine HCl (Effexor Xr) 150 mg DAILY PO Last administered on 07/18/18at 07 :38; Start 07/18/18 at 09:00 Active Scripts Active Reported Multivitamins (Multivitamin) 1 Each Tablet 1 Each PO DAILY Levothyroxine Sodium 100 Mcg Tablet 100 Mcg PO DAILYAC Vitamin B-12 (Cyanocobalamin (Vitamin B-12)) 1,000 Mcg Tablet 1,000 Mcg PO DAILY Celexa (Citalopram Hydrobromide) 20 Mg Tablet 20 Mg PO DAILY Tramadol Hcl (Tramadol HCl) 50 Mg Tablet 50 Mg PO PRN TID PRN Integra F Capsule (Iron Fum & Ps Cmp/Fa/Vit C/B3) 1 Each Capsule 1 Each PO DAILY Namenda (Memantine Hcl) 10 Mg Tablet 10 Mg PO DAILY Aricept (Donepezil Hcl) 10 Mg Tablet 10 Mg PO DAILY [place] 5-325 Tablet (Hydrocodone Bit/Acetaminophen) 1 Each Tablet 1 Tab PO PRN Q6HRS PRN Protonix (Pantoprazole Sodium) 40 Mg Tablet.dr 40 Mg PO BID Furosemide 20 Mg Tablet 20 Mg PO PRN DAILY PRN Venlafaxine Hcl Er (Venlafaxine Hcl) 150 Mg Tab.er.24 150 Mg PO DAILY I have reviewed the current psychotropics carefully including drug interactions. Risk benefit ratio favors no change other than as noted in my dictated progress note. Diagnosis: Problems: (1) Anxiety disorder (2) Bipolar affective disorder, mixed (3) Dementia, vascular, with delusions (4) Dementia, vascular, with depression (5) Dementia in Alzheimer's disease with delusions (6) Dementia in Alzheimer's disease with depression (7) Impulse control disorder JUAN PABLO GUTIERREZ MD Jul 18, 2018 22:47
--- NOTE | 2018-07-19 00:11 | PN ---
DATE: 07/17/2018 PSYCHIATRIC PROGRESS NOTE This late entry 07/17/2018 covers elements not covered in my initial note. SUBJECTIVE: I met with the patient in the evening. The patient slept 10 hours previous night. She remains somewhat withdrawn, but appropriate. Gets agitated, talking about relationship with her son-in-law. Somewhat forgetful. REVIEW OF SYSTEMS: No CV, , pulmonary, eye, ENT system symptoms on review. Gait unsteady with walker. MENTAL STATUS EXAM: Oriented to herself and situation. Speech coherent, abstraction fair, computation impaired, language function intact. Mood and affect still somewhat depressed, withdrawn. LABORATORY DATA: Reviewed. IMPRESSION: Unchanged from initial note. PLAN: No change from initial note. MAN Jorge GUTIERREZ MD DR: AMILCAR/leighton JOB#: [id number] / [id number]
--- NOTE | 2018-07-19 02:28 | PN ---
DATE: 07/16/2018 This is a late entry of 07/16/2018 covers elements not covered in my initial note. SUBJECTIVE: I met with the patient in the evening in her room. The patient slept 7 hours previous night. She has been somewhat withdrawn, spends much time in her room, tearful, talking about her son-in-law, problems interacting with him. CT head is negative. REVIEW OF SYSTEMS: No CV, , pulmonary, eye, ENT system symptoms on review. MENTAL STATUS EXAM: Oriented to herself and situation. Speech has some latency, coherent. Abstraction fair, computation impaired, language function intact. Mood and affect are somewhat withdrawn. LABORATORY DATA: Reviewed. IMPRESSION: Major neurocognitive disorder, Alzheimer, vascular with depression, bipolar 1 disorder, depressed. Rest unchanged. PLAN: No change from initial note. MAN Jorge GUTIERREZ MD DR: AMILCAR/leighton JOB#: [id number] / [id number]
[2018-07-19] MEDS: LEVOTHYROXINE 50 MCG TABLET PO SCH (06:01)
[2018-07-19 06:04] VITALS: BP 139/69
[2018-07-19] MEDS: MULTIVITAMIN with MINERAL TABLET. PO SCH (07:27)
[2018-07-19] MEDS: LACTOBACILLUS RHAMNOSUS GG 1 CAPSULE. PO SCH ×2 (07:27→20:13)
[2018-07-19] MEDS: PANTOPRAZOLE 40 MG TABLET. PO SCH ×2 (07:27→17:17)
[2018-07-19] MEDS: VENLAFAXINE XR 37.5 MG CAP.ER.24H. PO SCH (07:27)
[2018-07-19] MEDS: FERROUS SULFATE 325 MG TABLET. PO SCH ×2 (07:27→17:17)
[2018-07-19] MEDS: MEMANTINE 10 MG TABLET. PO SCH ×2 (07:28→20:13)
[2018-07-19] MEDS: CYANOCOBALAMIN (VITAMIN B-12) 1,000 MCG TABLET. PO SCH (07:28)
[2018-07-19] MEDS: DONEPEZIL HCL 10 MG TABLET PO SCH (07:28)
[2018-07-19] MEDS: AMOXICILLIN 250 MG CAPSULE PO SCH ×3 (07:28→20:13)
[2018-07-19] MEDS: ARIPiprazole 5 MG TABLET PO SCH (07:30)
[2018-07-19] MEDS: FUROSEMIDE 20 MG TABLET PO SCH (07:30)
[2018-07-19 16:29] VITALS: BP 125/59
--- NOTE | 2018-07-19 22:57 | PDOC ---
Exam Note: Gume Note: Please also refer to the separate dictated note~for this date of service dictated separately.~Patient seen individually. Discussed the patient with Nursing staff reviewed the chart.~Reviewed interim history and current functioning. Reviewed vital signs,~Labs/ Radiology~and current medications noted below. Continue current treatment with the changes noted in the dictated addendum note Assessment: Vital Signs: Vital Signs Date Time Temp Pulse Resp B/P (MAP) Pulse Ox O2 Delivery O2 Flow Rate FiO2 07/19/18 16:29 97.6 61 16 125/59 (81) 97 07/17/18 06:39 Room Air 07/16/18 15:45 I&O Intake and Output 07/19/18 07:01 Intake Total 720 ml Balance 720 ml Intake Oral 720 ml Current Medications: Meds: Current Medications Acetaminophen (Tylenol) 650 mg PRN Q6HRS PRN PO PAIN / TEMP; Start 07/13/18 at 23:30 Multi-Ingredient Ointment (Analgesic [place]) 1 eleazar PRN QID PRN TP MUSCLE PAIN; Start 07/13/18 at 23:30 Al Hydroxide/Mg Hydroxide (Mylanta Plus Xs) 15 ml PRN AFTMEALHC PRN PO DYSPEPSIA; Start 07/13/18 at 23:30 Magnesium Hydroxide (Milk Of Magnesia) 2,400 mg PRN QHS PRN PO CONSTIPATION; Start 07/13/18 at 23:30 Citalopram Hydrobromide (CeleXA) 20 mg DAILY PO Last administered on at 07:30; Start 07/14/18 at 09:00; Stop 07/15/18 at 13:37; Status DC Cyanocobalamin (Vitamin B-12) 1,000 mcg DAILY PO Last administered on 07/19/18at 07:28; Start 07/14/18 at 09:00 Levothyroxine Sodium (Synthroid) 100 mcg DAILYAC PO Last administered on at 08:12; Start 07/14/18 at 07:30; Stop 07/14/18 at 18:53; Status DC Donepezil HCl (Aricept) 10 mg DAILY PO Last administered on 07/19/18at 07:28; Start 07/14/18 at 09:00 Memantine (Namenda) 10 mg DAILY PO Last administered on 07/16/18at 07:29; Start 07/14/18 at 09:00; Stop 07/16/18 at 20:19; Status DC Pantoprazole Sodium (Protonix) 40 mg BIDBFRMEAL PO Last administered on 17:17; Start 07/14/18 at 07:30 Venlafaxine HCl (Effexor) 50 mg TID PO Last administered on 07/17/18 19:30; Start 07/14/18 at 09:00; Stop 07/17/18 at 20:56; Status DC Furosemide (Lasix) 20 mg DAILY PO Last administered on 07/19/18 07:30; Start 07/14/18 at 09:00 Tramadol HCl (Ultram) 50 mg PRN TID PRN PO PAIN; Start 07/14/18 at 01:15 Acetaminophen/ Hydrocodone Bitart (Lortab 5/325) 1 tab PRN Q6HRS PRN PO PAIN; Start 07/14/18 at 01:15 Non-Formulary Medication (Iron Fum & Ps Cmp/Fa/Vit C/B3 (Integra F Capsule)) 1 each DAILY PO ; Start 07/14/18 at 09:00; Stop 07/15/18 at 16:24; Status DC Multivitamins/ Calcium (Thera-M Plus) 1 tab DAILY PO Last administered on 07:27; Start 07/14/18 at 09:00 Trimethoprim/ Sulfamethoxazole (Bactrim Ds) 1 tab BID PO Last administered on 07/15/18at 07:29; Start 07/14/18 at 09:00; Stop 07/15/18 at 18:43; Status DC Levothyroxine Sodium (Synthroid) 50 mcg DAILY06 PO Last administered on 06:01; Start 07/15/18 at 06:00 Lactobacillus Rhamnosus (Culturelle) 1 cap BID PO Last administered on 20:13; Start 07/15/18 at 09:00 Aripiprazole (Abilify) 2.5 mg DAILY PO Last administered on 07/19/18 07:30; Start 07/16/18 at 09:00 Ferrous Sulfate (Feosol) 325 mg BIDWMEALS PO Last administered on 07/19/18 17: 17; Start 07/15/18 at 17:00 Amoxicillin (Amoxil) 250 mg [id number] PO Last administered on 07/19/18at 20:13; Start 07/15/18 at 21:00; Stop 07/22/18 at 22:00 Memantine (Namenda) 10 mg BID PO Last administered on 07/19/18at 20:13; Start at 20:30 Venlafaxine HCl (Effexor Xr) 150 mg DAILY PO Last administered on 07/19/18at 07: 27; Start 07/18/18 at 09:00 Active Scripts Active Reported Multivitamins (Multivitamin) 1 Each Tablet 1 Each PO DAILY Levothyroxine Sodium 100 Mcg Tablet 100 Mcg PO DAILYAC Vitamin B-12 (Cyanocobalamin (Vitamin B-12)) 1,000 Mcg Tablet 1,000 Mcg PO DAILY Celexa (Citalopram Hydrobromide) 20 Mg Tablet 20 Mg PO DAILY Tramadol Hcl (Tramadol HCl) 50 Mg Tablet 50 Mg PO PRN TID PRN Integra F Capsule (Iron Fum & Ps Cmp/Fa/Vit C/B3) 1 Each Capsule 1 Each PO DAILY Namenda (Memantine Hcl) 10 Mg Tablet 10 Mg PO DAILY Aricept (Donepezil Hcl) 10 Mg Tablet 10 Mg PO DAILY [place] 5-325 Tablet (Hydrocodone Bit/Acetaminophen) 1 Each Tablet 1 Tab PO PRN Q6HRS PRN Protonix (Pantoprazole Sodium) 40 Mg Tablet.dr 40 Mg PO BID Furosemide 20 Mg Tablet 20 Mg PO PRN DAILY PRN Venlafaxine Hcl Er (Venlafaxine Hcl) 150 Mg Tab.er.24 150 Mg PO DAILY I have reviewed the current psychotropics carefully including drug interactions. Risk benefit ratio favors no change other than as noted in my dictated progress note. Diagnosis: Problems: (1) Anxiety disorder (2) Bipolar affective disorder, mixed (3) Dementia, vascular, with delusions (4) Dementia, vascular, with depression (5) Dementia in Alzheimer's disease with delusions (6) Dementia in Alzheimer's disease with depression (7) Impulse control disorder JUAN PABLO GUTIERREZ MD Jul 19, 2018 22:57
--- NOTE | 2018-07-19 23:34 | PN ---
DATE: 07/18/2018 PSYCHIATRIC PROGRESS NOTE This is a late entry 07/18/2018 covers elements not covered in my initial note. SUBJECTIVE: I met with the patient at length in her room. Per nursing report, the patient slept 6-1/2 hours previous night. She has been calm, pleasant, blames her family for her predicament. Compliant with medications. She does have short term memory deficits. Discussed her family situation and feelings about her son-in-law at length individually. She is very verbal, expressive about this. REVIEW OF SYSTEMS: No CV, , pulmonary, eye, ENT system symptoms on review. Gait slightly unsteady with walker. MENTAL STATUS EXAM: Oriented to herself and situation. Speech has some latency, coherent. Abstraction fair, computation impaired, language function intact, attention span short. Mood and affect showing improvement. LABORATORY DATA: Reviewed. IMPRESSION: Unchanged from initial note. PLAN: No change from initial note. She is on Amoxil for her UTI and Aricept and Namenda for her memory deficits, Effexor XR 150 mg a day, being augmented with Abilify 2.5 mg a day for her mood symptoms. MAN Jorge GUTIERREZ MD DR: AMILCAR/leighton JOB#: [id number] / [id number]
[2018-07-20] MEDS: HYDROcodone/APAP 5/325MG 1 TAB TABLET PO PRN (05:19)
[2018-07-20] MEDS: LEVOTHYROXINE 50 MCG TABLET PO SCH (05:19)
[2018-07-20 05:37] VITALS: BP 151/71
[2018-07-20] MEDS: ARIPiprazole 5 MG TABLET PO SCH (08:11)
[2018-07-20] MEDS: DONEPEZIL HCL 10 MG TABLET PO SCH (08:11)
[2018-07-20] MEDS: PANTOPRAZOLE 40 MG TABLET. PO SCH ×2 (08:12→15:53)
[2018-07-20] MEDS: VENLAFAXINE XR 37.5 MG CAP.ER.24H. PO SCH (08:12)
[2018-07-20] MEDS: MEMANTINE 10 MG TABLET. PO SCH ×2 (08:12→19:40)
[2018-07-20] MEDS: FERROUS SULFATE 325 MG TABLET. PO SCH ×2 (08:12→15:53)
[2018-07-20] MEDS: LACTOBACILLUS RHAMNOSUS GG 1 CAPSULE. PO SCH ×2 (08:12→19:40)
[2018-07-20] MEDS: CYANOCOBALAMIN (VITAMIN B-12) 1,000 MCG TABLET. PO SCH (08:12)
[2018-07-20] MEDS: AMOXICILLIN 250 MG CAPSULE PO SCH ×3 (08:12→19:40)
[2018-07-20] MEDS: MULTIVITAMIN with MINERAL TABLET. PO SCH (08:12)
[2018-07-20] MEDS: FUROSEMIDE 20 MG TABLET PO SCH (08:13)
[2018-07-20 16:20] VITALS: BP 138/68
--- NOTE | 2018-07-20 22:48 | PDOC ---
Exam Note: Gume Note: Please also refer to the separate dictated note~for this date of service dictated separately.~Patient seen individually. Discussed the patient with Nursing staff reviewed the chart.~Reviewed interim history and current functioning. Reviewed vital signs,~Labs/ Radiology~and current medications noted below. Continue current treatment with the changes noted in the dictated addendum note Assessment: Vital Signs: Vital Signs Date Time Temp Pulse Resp B/P (MAP) Pulse Ox O2 Delivery O2 Flow Rate FiO2 07/20/18 16:20 98.0 77 16 138/68 (91) 96 Room Air 07/16/18 15:45 I&O Intake and Output 07/20/18 07:01 Intake Total 920 ml Balance 920 ml Intake Oral 920 ml Current Medications: Meds: Current Medications Acetaminophen (Tylenol) 650 mg PRN Q6HRS PRN PO PAIN / TEMP; Start 07/13/18 at 23:30 Multi-Ingredient Ointment (Analgesic [place]) 1 eleazar PRN QID PRN TP MUSCLE PAIN; Start 07/13/18 at 23:30 Al Hydroxide/Mg Hydroxide (Mylanta Plus Xs) 15 ml PRN AFTMEALHC PRN PO DYSPEPSIA; Start 07/13/18 at 23:30 Magnesium Hydroxide (Milk Of Magnesia) 2,400 mg PRN QHS PRN PO CONSTIPATION; Start 07/13/18 at 23:30 Citalopram Hydrobromide (CeleXA) 20 mg DAILY PO Last administered on at 07:30; Start 07/14/18 at 09:00; Stop 07/15/18 at 13:37; Status DC Cyanocobalamin (Vitamin B-12) 1,000 mcg DAILY PO Last administered on 07/20/18at 08:12; Start 07/14/18 at 09:00 Levothyroxine Sodium (Synthroid) 100 mcg DAILYAC PO Last administered on at 08:12; Start 07/14/18 at 07:30; Stop 07/14/18 at 18:53; Status DC Donepezil HCl (Aricept) 10 mg DAILY PO Last administered on 07/20/18at 08:11; Start 07/14/18 at 09:00 Memantine (Namenda) 10 mg DAILY PO Last administered on 07/16/18at 07:29; Start 07/14/18 at 09:00; Stop 07/16/18 at 20:19; Status DC Pantoprazole Sodium (Protonix) 40 mg BIDBFRMEAL PO Last administered on 15:53; Start 07/14/18 at 07:30 Venlafaxine HCl (Effexor) 50 mg TID PO Last administered on 07/17/18at 19:30; Start 07/14/18 at 09:00; Stop 07/17/18 at 20:56; Status DC Furosemide (Lasix) 20 mg DAILY PO Last administered on 07/20/18 08:13; Start 07/14/18 at 09:00 Tramadol HCl (Ultram) 50 mg PRN TID PRN PO PAIN; Start 07/14/18 at 01:15 Acetaminophen/ Hydrocodone Bitart (Lortab 5/325) 1 tab PRN Q6HRS PRN PO PAIN Last administered on 07/20/18 05:19; Start 07/14/18 at 01:15 Non-Formulary Medication (Iron Fum & Ps Cmp/Fa/Vit C/B3 (Integra F Capsule)) 1 each DAILY PO ; Start 07/14/18 at 09:00; Stop 07/15/18 at 16:24; Status DC Multivitamins/ Calcium (Thera-M Plus) 1 tab DAILY PO Last administered on 08:12; Start 07/14/18 at 09:00 Trimethoprim/ Sulfamethoxazole (Bactrim Ds) 1 tab BID PO Last administered on 07/15/18at 07:29; Start 07/14/18 at 09:00; Stop 07/15/18 at 18:43; Status DC Levothyroxine Sodium (Synthroid) 50 mcg DAILY06 PO Last administered on 05:19; Start 07/15/18 at 06:00 Lactobacillus Rhamnosus (Culturelle) 1 cap BID PO Last administered on 19:40; Start 07/15/18 at 09:00 Aripiprazole (Abilify) 2.5 mg DAILY PO Last administered on 07/20/18 08:11; Start 07/16/18 at 09:00 Ferrous Sulfate (Feosol) 325 mg BIDWMEALS PO Last administered on 07/20/18 15: 53; Start 07/15/18 at 17:00 Amoxicillin (Amoxil) 250 mg [id number] PO Last administered on 07/20/18 19:40; Start 07/15/18 at 21:00; Stop 07/22/18 at 22:00 Memantine (Namenda) 10 mg BID PO Last administered on 07/20/18 19:40; Start at 20:30 Venlafaxine HCl (Effexor Xr) 150 mg DAILY PO Last administered on 07/20/18 08: 12; Start 07/18/18 at 09:00 Active Scripts Active Reported Multivitamins (Multivitamin) 1 Each Tablet 1 Each PO DAILY Levothyroxine Sodium 100 Mcg Tablet 100 Mcg PO DAILYAC Vitamin B-12 (Cyanocobalamin (Vitamin B-12)) 1,000 Mcg Tablet 1,000 Mcg PO DAILY Celexa (Citalopram Hydrobromide) 20 Mg Tablet 20 Mg PO DAILY Tramadol Hcl (Tramadol HCl) 50 Mg Tablet 50 Mg PO PRN TID PRN Integra F Capsule (Iron Fum & Ps Cmp/Fa/Vit C/B3) 1 Each Capsule 1 Each PO DAILY Namenda (Memantine Hcl) 10 Mg Tablet 10 Mg PO DAILY Aricept (Donepezil Hcl) 10 Mg Tablet 10 Mg PO DAILY [place] 5-325 Tablet (Hydrocodone Bit/Acetaminophen) 1 Each Tablet 1 Tab PO PRN Q6HRS PRN Protonix (Pantoprazole Sodium) 40 Mg Tablet.dr 40 Mg PO BID Furosemide 20 Mg Tablet 20 Mg PO PRN DAILY PRN Venlafaxine Hcl Er (Venlafaxine Hcl) 150 Mg Tab.er.24 150 Mg PO DAILY I have reviewed the current psychotropics carefully including drug interactions. Risk benefit ratio favors no change other than as noted in my dictated progress note. Diagnosis: Problems: (1) Anxiety disorder (2) Bipolar affective disorder, mixed (3) Dementia, vascular, with delusions (4) Dementia, vascular, with depression (5) Dementia in Alzheimer's disease with delusions (6) Dementia in Alzheimer's disease with depression (7) Impulse control disorder JUAN PABLO GUTIERREZ MD Jul 20, 2018 22:48
--- NOTE | 2018-07-20 23:28 | PN ---
DATE: 07/19/2018 PSYCHIATRIC PROGRESS NOTE This late entry 07/19/2018 covers elements not covered in my initial note. SUBJECTIVE: I met with the patient in the evening. The patient slept 5-1/4 hours previous night. She has been somewhat withdrawn, but did come out for dinner and I met with her outside her room. She is still angry at her son-in-law for the negative interactions. They have had as detailed in my prior notes and we addressed this at some length. REVIEW OF SYSTEMS: No CV, , pulmonary, eye, ENT system symptoms on review. MENTAL STATUS EXAM: Oriented to herself and situation. Speech is coherent, abstraction fair, computation impaired, language function intact. Short term memory is impaired. No active suicidal or homicidal ideation. Mood is somewhat dysphoric, anxious. Affect is mood congruent. LABORATORY DATA: Reviewed. 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 Rest unchanged. PLAN: No change from initial note. MAN Jorge GUTIERREZ MD DR: AMILCAR/leighton JOB#: [id number] / [id number]
[2018-07-21 05:50] VITALS: BP 146/56
[2018-07-21] MEDS: LEVOTHYROXINE 50 MCG TABLET PO SCH (06:14)
[2018-07-21] MEDS: ARIPiprazole 5 MG TABLET PO SCH (07:59)
[2018-07-21] MEDS: FERROUS SULFATE 325 MG TABLET. PO SCH ×2 (07:59→16:45)
[2018-07-21] MEDS: MEMANTINE 10 MG TABLET. PO SCH ×2 (07:59→20:37)
[2018-07-21] MEDS: MULTIVITAMIN with MINERAL TABLET. PO SCH (07:59)
[2018-07-21] MEDS: PANTOPRAZOLE 40 MG TABLET. PO SCH ×2 (07:59→16:45)
[2018-07-21] MEDS: DONEPEZIL HCL 10 MG TABLET PO SCH (07:59)
[2018-07-21] MEDS: VENLAFAXINE XR 37.5 MG CAP.ER.24H. PO SCH (07:59)
[2018-07-21] MEDS: AMOXICILLIN 250 MG CAPSULE PO SCH ×3 (07:59→20:37)
[2018-07-21] MEDS: LACTOBACILLUS RHAMNOSUS GG 1 CAPSULE. PO SCH ×2 (07:59→20:37)
[2018-07-21] MEDS: FUROSEMIDE 20 MG TABLET PO SCH (07:59)
[2018-07-21] MEDS: CYANOCOBALAMIN (VITAMIN B-12) 1,000 MCG TABLET. PO SCH (07:59)
[2018-07-21 16:00] VITALS: BP 150/76
[2018-07-21] MEDS: DIVALPROEX ER 500 MG TAB.ER.24H PO SCH (20:38)
--- NOTE | 2018-07-21 22:57 | PDOC ---
Exam Note: Gume Note: Please also refer to the separate dictated note~for this date of service dictated separately.~Patient seen individually. Discussed the patient with Nursing staff reviewed the chart.~Reviewed interim history and current functioning. Reviewed vital signs,~Labs/ Radiology~and current medications noted below. Continue current treatment with the changes noted in the dictated addendum note Assessment: Vital Signs: Vital Signs Date Time Temp Pulse Resp B/P (MAP) Pulse Ox O2 Delivery O2 Flow Rate FiO2 07/21/18 16:00 97.3 77 18 150/76 (100) 98 Room Air 07/16/18 15:45 I&O Intake and Output 07/21/18 07:01 Intake Total 720 ml Balance 720 ml Intake Oral 720 ml # Voids 1 Current Medications: Meds: Current Medications Acetaminophen (Tylenol) 650 mg PRN Q6HRS PRN PO PAIN / TEMP; Start 07/13/18 at 23:30 Multi-Ingredient Ointment (Analgesic [place]) 1 eleazar PRN QID PRN TP MUSCLE PAIN; Start 07/13/18 at 23:30 Al Hydroxide/Mg Hydroxide (Mylanta Plus Xs) 15 ml PRN AFTMEALHC PRN PO DYSPEPSIA; Start 07/13/18 at 23:30 Magnesium Hydroxide (Milk Of Magnesia) 2,400 mg PRN QHS PRN PO CONSTIPATION; Start 07/13/18 at 23:30 Citalopram Hydrobromide (CeleXA) 20 mg DAILY PO Last administered on at 07:30; Start 07/14/18 at 09:00; Stop 07/15/18 at 13:37; Status DC Cyanocobalamin (Vitamin B-12) 1,000 mcg DAILY PO Last administered on 07/21/18at 07:59; Start 07/14/18 at 09:00 Levothyroxine Sodium (Synthroid) 100 mcg DAILYAC PO Last administered on at 08:12; Start 07/14/18 at 07:30; Stop 07/14/18 at 18:53; Status DC Donepezil HCl (Aricept) 10 mg DAILY PO Last administered on 07/21/18at 07:59; Start 07/14/18 at 09:00 Memantine (Namenda) 10 mg DAILY PO Last administered on 07/16/18at 07:29; Start 07/14/18 at 09:00; Stop 07/16/18 at 20:19; Status DC Pantoprazole Sodium (Protonix) 40 mg BIDBFRMEAL PO Last administered on 16:45; Start 07/14/18 at 07:30 Venlafaxine HCl (Effexor) 50 mg TID PO Last administered on 07/17/18at 19:30; Start 07/14/18 at 09:00; Stop 07/17/18 at 20:56; Status DC Furosemide (Lasix) 20 mg DAILY PO Last administered on 07/21/18 07:59; Start 07/14/18 at 09:00 Tramadol HCl (Ultram) 50 mg PRN TID PRN PO PAIN; Start 07/14/18 at 01:15 Acetaminophen/ Hydrocodone Bitart (Lortab 5/325) 1 tab PRN Q6HRS PRN PO PAIN Last administered on 07/20/18 05:19; Start 07/14/18 at 01:15 Non-Formulary Medication (Iron Fum & Ps Cmp/Fa/Vit C/B3 (Integra F Capsule)) 1 each DAILY PO ; Start 07/14/18 at 09:00; Stop 07/15/18 at 16:24; Status DC Multivitamins/ Calcium (Thera-M Plus) 1 tab DAILY PO Last administered on 07:59; Start 07/14/18 at 09:00 Trimethoprim/ Sulfamethoxazole (Bactrim Ds) 1 tab BID PO Last administered on 07/15/18at 07:29; Start 07/14/18 at 09:00; Stop 07/15/18 at 18:43; Status DC Levothyroxine Sodium (Synthroid) 50 mcg DAILY06 PO Last administered on 06:14; Start 07/15/18 at 06:00 Lactobacillus Rhamnosus (Culturelle) 1 cap BID PO Last administered on 20:37; Start 07/15/18 at 09:00 Aripiprazole (Abilify) 2.5 mg DAILY PO Last administered on 07/21/18 07:59; Start 07/16/18 at 09:00 Ferrous Sulfate (Feosol) 325 mg BIDWMEALS PO Last administered on 07/21/18 16: 45; Start 07/15/18 at 17:00 Amoxicillin (Amoxil) 250 mg [id number] PO Last administered on 07/21/18 20:37; Start 07/15/18 at 21:00; Stop 07/22/18 at 22:00 Memantine (Namenda) 10 mg BID PO Last administered on 07/21/18 20:37; Start at 20:30 Venlafaxine HCl (Effexor Xr) 150 mg DAILY PO Last administered on 07/21/18 07: 59; Start 07/18/18 at 09:00 Divalproex Sodium (Depakote Er) 500 mg QHS PO Last administered on 07/21/18 20: 38; Start 07/21/18 at 21:00 Active Scripts Active Reported Multivitamins (Multivitamin) 1 Each Tablet 1 Each PO DAILY Levothyroxine Sodium 100 Mcg Tablet 100 Mcg PO DAILYAC Vitamin B-12 (Cyanocobalamin (Vitamin B-12)) 1,000 Mcg Tablet 1,000 Mcg PO DAILY Celexa (Citalopram Hydrobromide) 20 Mg Tablet 20 Mg PO DAILY Tramadol Hcl (Tramadol HCl) 50 Mg Tablet 50 Mg PO PRN TID PRN Integra F Capsule (Iron Fum & Ps Cmp/Fa/Vit C/B3) 1 Each Capsule 1 Each PO DAILY Namenda (Memantine Hcl) 10 Mg Tablet 10 Mg PO DAILY Aricept (Donepezil Hcl) 10 Mg Tablet 10 Mg PO DAILY [place] 5-325 Tablet (Hydrocodone Bit/Acetaminophen) 1 Each Tablet 1 Tab PO PRN Q6HRS PRN Protonix (Pantoprazole Sodium) 40 Mg Tablet.dr 40 Mg PO BID Furosemide 20 Mg Tablet 20 Mg PO PRN DAILY PRN Venlafaxine Hcl Er (Venlafaxine Hcl) 150 Mg Tab.er.24 150 Mg PO DAILY I have reviewed the current psychotropics carefully including drug interactions. Risk benefit ratio favors no change other than as noted in my dictated progress note. Diagnosis: Problems: (1) Anxiety disorder (2) Bipolar affective disorder, mixed (3) Dementia, vascular, with delusions (4) Dementia, vascular, with depression (5) Dementia in Alzheimer's disease with delusions (6) Dementia in Alzheimer's disease with depression (7) Impulse control disorder JUAN PABLO GUTIERREZ MD Jul 21, 2018 22:57
[2018-07-22 05:38] VITALS: BP 131/63
[2018-07-22] MEDS: LEVOTHYROXINE 50 MCG TABLET PO SCH (05:57)
[2018-07-22] MEDS: ARIPiprazole 5 MG TABLET PO SCH (08:58)
[2018-07-22] MEDS: PANTOPRAZOLE 40 MG TABLET. PO SCH ×2 (08:58→16:18)
[2018-07-22] MEDS: FERROUS SULFATE 325 MG TABLET. PO SCH ×2 (08:58→16:18)
[2018-07-22] MEDS: VENLAFAXINE XR 37.5 MG CAP.ER.24H. PO SCH (08:59)
[2018-07-22] MEDS: LACTOBACILLUS RHAMNOSUS GG 1 CAPSULE. PO SCH ×2 (09:00→19:55)
[2018-07-22] MEDS: FUROSEMIDE 20 MG TABLET PO SCH (09:00)
[2018-07-22] MEDS: MEMANTINE 10 MG TABLET. PO SCH ×2 (09:00→19:54)
[2018-07-22] MEDS: CYANOCOBALAMIN (VITAMIN B-12) 1,000 MCG TABLET. PO SCH (09:00)
[2018-07-22] MEDS: MULTIVITAMIN with MINERAL TABLET. PO SCH (09:00)
[2018-07-22] MEDS: DONEPEZIL HCL 10 MG TABLET PO SCH (09:00)
[2018-07-22] MEDS: AMOXICILLIN 250 MG CAPSULE PO SCH ×3 (09:01→19:54)
[2018-07-22 16:50] VITALS: BP 132/65
--- NOTE | 2018-07-22 17:04 | PN ---
DATE: 07/20/2018 This late entry date of service 07/20/2017 covers elements not covered in my initial note. SUBJECTIVE: I met with the patient in the evening of 07/20/2018. The patient slept 6 hours previous evening. She is otherwise doing better, somewhat forgetful, confused, but no PRNs have been used. She remains on Amoxil for her UTI. REVIEW OF SYSTEMS: No CV, , pulmonary, eye, ENT system symptoms on review. MENTAL STATUS EXAM: Oriented to herself and situation. Speech is coherent, abstraction fair, computation impaired, language function intact, attention span short. Mood and affect remain somewhat anxious, at times labile, but improved. LABORATORY DATA: Reviewed. IMPRESSION: Unchanged from initial note. PLAN: No change from initial note. MAN Jorge GUTIERREZ MD DR: AMILCAR/leighton JOB#: [id number] / [id number]
[2018-07-22] MEDS: DIVALPROEX ER 500 MG TAB.ER.24H PO SCH (19:55)
--- NOTE | 2018-07-22 22:41 | PDOC ---
Exam Note: Gume Note: Please also refer to the separate dictated note~for this date of service dictated separately.~Patient seen individually. Discussed the patient with Nursing staff reviewed the chart.~Reviewed interim history and current functioning. Reviewed vital signs,~Labs/ Radiology~and current medications noted below. Continue current treatment with the changes noted in the dictated addendum note Assessment: Vital Signs: Vital Signs Date Time Temp Pulse Resp B/P (MAP) Pulse Ox O2 Delivery O2 Flow Rate FiO2 07/22/18 16:50 99.3 83 19 132/65 (87) 96 07/21/18 16:00 Room Air 07/16/18 15:45 I&O Intake and Output 07/22/18 07:01 Intake Total 840 ml Balance 840 ml Intake Oral 840 ml # Bowel Movements 1 Current Medications: Meds: Current Medications Acetaminophen (Tylenol) 650 mg PRN Q6HRS PRN PO PAIN / TEMP; Start 07/13/18 at 23:30 Multi-Ingredient Ointment (Analgesic [place]) 1 eleazar PRN QID PRN TP MUSCLE PAIN; Start 07/13/18 at 23:30 Al Hydroxide/Mg Hydroxide (Mylanta Plus Xs) 15 ml PRN AFTMEALHC PRN PO DYSPEPSIA; Start 07/13/18 at 23:30 Magnesium Hydroxide (Milk Of Magnesia) 2,400 mg PRN QHS PRN PO CONSTIPATION; Start 07/13/18 at 23:30 Citalopram Hydrobromide (CeleXA) 20 mg DAILY PO Last administered on at 07:30; Start 07/14/18 at 09:00; Stop 07/15/18 at 13:37; Status DC Cyanocobalamin (Vitamin B-12) 1,000 mcg DAILY PO Last administered on 07/22/18at 09:00; Start 07/14/18 at 09:00 Levothyroxine Sodium (Synthroid) 100 mcg DAILYAC PO Last administered on at 08:12; Start 07/14/18 at 07:30; Stop 07/14/18 at 18:53; Status DC Donepezil HCl (Aricept) 10 mg DAILY PO Last administered on 07/22/18 09:00; Start 07/14/18 at 09:00 Memantine (Namenda) 10 mg DAILY PO Last administered on 07/16/18 07:29; Start 07/14/18 at 09:00; Stop 07/16/18 at 20:19; Status DC Pantoprazole Sodium (Protonix) 40 mg BIDBFRMEAL PO Last administered on 16:18; Start 07/14/18 at 07:30 Venlafaxine HCl (Effexor) 50 mg TID PO Last administered on 07/17/18at 19:30; Start 07/14/18 at 09:00; Stop 07/17/18 at 20:56; Status DC Furosemide (Lasix) 20 mg DAILY PO Last administered on 07/22/18 09:00; Start 07/14/18 at 09:00 Tramadol HCl (Ultram) 50 mg PRN TID PRN PO PAIN; Start 07/14/18 at 01:15 Acetaminophen/ Hydrocodone Bitart (Lortab 5/325) 1 tab PRN Q6HRS PRN PO PAIN Last administered on 07/20/18 05:19; Start 07/14/18 at 01:15 Non-Formulary Medication (Iron Fum & Ps Cmp/Fa/Vit C/B3 (Integra F Capsule)) 1 each DAILY PO ; Start 07/14/18 at 09:00; Stop 07/15/18 at 16:24; Status DC Multivitamins/ Calcium (Thera-M Plus) 1 tab DAILY PO Last administered on 09:00; Start 07/14/18 at 09:00 Trimethoprim/ Sulfamethoxazole (Bactrim Ds) 1 tab BID PO Last administered on 07/15/18at 07:29; Start 07/14/18 at 09:00; Stop 07/15/18 at 18:43; Status DC Levothyroxine Sodium (Synthroid) 50 mcg DAILY06 PO Last administered on 05:57; Start 07/15/18 at 06:00 Lactobacillus Rhamnosus (Culturelle) 1 cap BID PO Last administered on 19:55; Start 07/15/18 at 09:00 Aripiprazole (Abilify) 2.5 mg DAILY PO Last administered on 07/22/18 08:58; Start 07/16/18 at 09:00 Ferrous Sulfate (Feosol) 325 mg BIDWMEALS PO Last administered on 07/22/18 16: 18; Start 07/15/18 at 17:00 Amoxicillin (Amoxil) 250 mg [id number] PO Last administered on 07/22/18 19:54; Start 07/15/18 at 21:00; Stop 07/22/18 at 22:00; Status DC Memantine (Namenda) 10 mg BID PO Last administered on 07/22/18 19:54; Start at 20:30 Venlafaxine HCl (Effexor Xr) 150 mg DAILY PO Last administered on 07/22/18 08: 59; Start 07/18/18 at 09:00 Divalproex Sodium (Depakote Er) 500 mg QHS PO Last administered on 07/22/18 19: 55; Start 07/21/18 at 21:00 Active Scripts Active Reported Multivitamins (Multivitamin) 1 Each Tablet 1 Each PO DAILY Levothyroxine Sodium 100 Mcg Tablet 100 Mcg PO DAILYAC Vitamin B-12 (Cyanocobalamin (Vitamin B-12)) 1,000 Mcg Tablet 1,000 Mcg PO DAILY Celexa (Citalopram Hydrobromide) 20 Mg Tablet 20 Mg PO DAILY Tramadol Hcl (Tramadol HCl) 50 Mg Tablet 50 Mg PO PRN TID PRN Integra F Capsule (Iron Fum & Ps Cmp/Fa/Vit C/B3) 1 Each Capsule 1 Each PO DAILY Namenda (Memantine Hcl) 10 Mg Tablet 10 Mg PO DAILY Aricept (Donepezil Hcl) 10 Mg Tablet 10 Mg PO DAILY [place] 5-325 Tablet (Hydrocodone Bit/Acetaminophen) 1 Each Tablet 1 Tab PO PRN Q6HRS PRN Protonix (Pantoprazole Sodium) 40 Mg Tablet.dr 40 Mg PO BID Furosemide 20 Mg Tablet 20 Mg PO PRN DAILY PRN Venlafaxine Hcl Er (Venlafaxine Hcl) 150 Mg Tab.er.24 150 Mg PO DAILY I have reviewed the current psychotropics carefully including drug interactions. Risk benefit ratio favors no change other than as noted in my dictated progress note. Diagnosis: Problems: (1) Anxiety disorder (2) Bipolar affective disorder, mixed (3) Dementia, vascular, with delusions (4) Dementia, vascular, with depression (5) Dementia in Alzheimer's disease with delusions (6) Dementia in Alzheimer's disease with depression (7) Impulse control disorder JUAN PABLO GUTIERREZ MD Jul 22, 2018 22:41
--- NOTE | 2018-07-23 04:06 | PN ---
DATE: 07/21/2018 PSYCHIATRIC PROGRESS NOTE This late entry 07/21/2018 covers elements not covered in my initial note. SUBJECTIVE: I met with the patient in the evening at length and staffed a treatment team meeting with the entire team in the morning and the patient's son, Ryan, attended the treatment team meeting at length. Reviewed the patient's history. The patient remains somewhat paranoid. Compliant with her medications. The patient remains suspicious that her family is going to turn her out onto the street. She will have no place to live. REVIEW OF SYSTEMS: Careful review of history from the past according to the son indicates symptoms reflective of bipolar disorder. She would have periods of time when she would spend excessively, become grandiose, manic, hyperverbal, would walk away from the [place] the highway, oblivious of the circumstances and risks. REVIEW OF SYSTEMS: No CV, , pulmonary, eye system symptoms on review. MENTAL STATUS EXAM: Oriented to herself and situation. Speech is coherent, rapid at times. Abstraction fair, computation impaired, language function intact. Short term memory is impaired. No active suicidal or homicidal ideation. LABORATORY DATA: Reviewed. IMPRESSION: Bipolar 1 disorder, mixed with psychotic features; cognitive disorder, unspecified versus major neurocognitive disorder, early Alzheimer, vascular with delusion. PLAN: Son reassured us that the son-in-law is very supportive of the patient extremely caring and just got frustrated with how the patient was presenting. They would be happy to have her back home post-discharge. We will go ahead and start Depakote ER 500 mg p.o. at bedtime. Check CBC, CMP, valproic acid level in 3 days for the bipolar disorder. Adjust to reach therapeutic level. Rest unchanged from initial note. MAN Jorge GUTIERREZ MD DR: AMILCAR/leighton JOB#: [id number] / [id number]
[2018-07-23] MEDS: LEVOTHYROXINE 50 MCG TABLET PO SCH (04:58)
[2018-07-23 05:43] VITALS: BP 162/67
[2018-07-23] MEDS: HYDROcodone/APAP 5/325MG 1 TAB TABLET PO PRN (05:55)
[2018-07-23] MEDS: LACTOBACILLUS RHAMNOSUS GG 1 CAPSULE. PO SCH ×2 (07:50→19:37)
[2018-07-23] MEDS: VENLAFAXINE XR 37.5 MG CAP.ER.24H. PO SCH (07:50)
[2018-07-23] MEDS: MEMANTINE 10 MG TABLET. PO SCH ×2 (07:50→19:37)
[2018-07-23] MEDS: PANTOPRAZOLE 40 MG TABLET. PO SCH ×2 (07:50→17:14)
[2018-07-23] MEDS: FERROUS SULFATE 325 MG TABLET. PO SCH ×2 (07:50→17:14)
[2018-07-23] MEDS: MULTIVITAMIN with MINERAL TABLET. PO SCH (07:50)
[2018-07-23] MEDS: DONEPEZIL HCL 10 MG TABLET PO SCH (07:51)
[2018-07-23] MEDS: CYANOCOBALAMIN (VITAMIN B-12) 1,000 MCG TABLET. PO SCH (07:51)
[2018-07-23] MEDS: FUROSEMIDE 20 MG TABLET PO SCH (07:51)
[2018-07-23] MEDS: ARIPiprazole 5 MG TABLET PO SCH (07:51)
[2018-07-23 16:17] VITALS: BP 136/53
[2018-07-23] MEDS: DIVALPROEX ER 500 MG TAB.ER.24H PO SCH (19:37)
--- NOTE | 2018-07-23 21:03 | PDOC ---
Exam Note: Gume Note: Please also refer to the separate dictated note~for this date of service dictated separately.~Patient seen individually. Discussed the patient with Nursing staff reviewed the chart.~Reviewed interim history and current functioning. Reviewed vital signs,~Labs/ Radiology~and current medications noted below. Continue current treatment with the changes noted in the dictated addendum note Assessment: Vital Signs: Vital Signs Date Time Temp Pulse Resp B/P (MAP) Pulse Ox O2 Delivery O2 Flow Rate FiO2 07/23/18 16:17 97.3 63 17 136/53 (80) 97 Room Air I&O Intake and Output 07/23/18 07:01 Intake Total 1085 ml Balance 1085 ml Intake Oral 1085 ml Current Medications: Meds: Current Medications Acetaminophen (Tylenol) 650 mg PRN Q6HRS PRN PO PAIN / TEMP; Start 07/13/18 at 23:30 Multi-Ingredient Ointment (Analgesic [place]) 1 eleazar PRN QID PRN TP MUSCLE PAIN; Start 07/13/18 at 23:30 Al Hydroxide/Mg Hydroxide (Mylanta Plus Xs) 15 ml PRN AFTMEALHC PRN PO DYSPEPSIA; Start 07/13/18 at 23:30 Magnesium Hydroxide (Milk Of Magnesia) 2,400 mg PRN QHS PRN PO CONSTIPATION; Start 07/13/18 at 23:30 Citalopram Hydrobromide (CeleXA) 20 mg DAILY PO Last administered on at 07:30; Start 07/14/18 at 09:00; Stop 07/15/18 at 13:37; Status DC Cyanocobalamin (Vitamin B-12) 1,000 mcg DAILY PO Last administered on 07/23/18at 07:51; Start 07/14/18 at 09:00 Levothyroxine Sodium (Synthroid) 100 mcg DAILYAC PO Last administered on at 08:12; Start 07/14/18 at 07:30; Stop 07/14/18 at 18:53; Status DC Donepezil HCl (Aricept) 10 mg DAILY PO Last administered on 07/23/18 07:51; Start 07/14/18 at 09:00 Memantine (Namenda) 10 mg DAILY PO Last administered on 07/16/18at 07:29; Start 07/14/18 at 09:00; Stop 07/16/18 at 20:19; Status DC Pantoprazole Sodium (Protonix) 40 mg BIDBFRMEAL PO Last administered on 17:14; Start 07/14/18 at 07:30 Venlafaxine HCl (Effexor) 50 mg TID PO Last administered on 07/17/18 19:30; Start 07/14/18 at 09:00; Stop 07/17/18 at 20:56; Status DC Furosemide (Lasix) 20 mg DAILY PO Last administered on 07/23/18 07:51; Start 07/14/18 at 09:00 Tramadol HCl (Ultram) 50 mg PRN TID PRN PO PAIN Last administered on 07/22/18 23:57; Start 07/14/18 at 01:15 Acetaminophen/ Hydrocodone Bitart (Lortab 5/325) 1 tab PRN Q6HRS PRN PO PAIN Last administered on 07/23/18 05:55; Start 07/14/18 at 01:15 Non-Formulary Medication (Iron Fum & Ps Cmp/Fa/Vit C/B3 (Integra F Capsule)) 1 each DAILY PO ; Start 07/14/18 at 09:00; Stop 07/15/18 at 16:24; Status DC Multivitamins/ Calcium (Thera-M Plus) 1 tab DAILY PO Last administered on 07:50; Start 07/14/18 at 09:00 Trimethoprim/ Sulfamethoxazole (Bactrim Ds) 1 tab BID PO Last administered on 07/15/18at 07:29; Start 07/14/18 at 09:00; Stop 07/15/18 at 18:43; Status DC Levothyroxine Sodium (Synthroid) 50 mcg DAILY06 PO Last administered on 04:58; Start 07/15/18 at 06:00 Lactobacillus Rhamnosus (Culturelle) 1 cap BID PO Last administered on 19:37; Start 07/15/18 at 09:00 Aripiprazole (Abilify) 2.5 mg DAILY PO Last administered on 07/23/18 07:51; Start 07/16/18 at 09:00 Ferrous Sulfate (Feosol) 325 mg BIDWMEALS PO Last administered on 07/23/18 17: 14; Start 07/15/18 at 17:00 Amoxicillin (Amoxil) 250 mg [id number] PO Last administered on 07/22/18 19:54; Start 07/15/18 at 21:00; Stop 07/22/18 at 22:00; Status DC Memantine (Namenda) 10 mg BID PO Last administered on 07/23/18 19:37; Start at 20:30 Venlafaxine HCl (Effexor Xr) 150 mg DAILY PO Last administered on 07/23/18 07: 50; Start 07/18/18 at 09:00 Divalproex Sodium (Depakote Er) 500 mg QHS PO Last administered on 07/23/18 19: 37; Start 07/21/18 at 21:00 Active Scripts Active Reported Multivitamins (Multivitamin) 1 Each Tablet 1 Each PO DAILY Levothyroxine Sodium 100 Mcg Tablet 100 Mcg PO DAILYAC Vitamin B-12 (Cyanocobalamin (Vitamin B-12)) 1,000 Mcg Tablet 1,000 Mcg PO DAILY Celexa (Citalopram Hydrobromide) 20 Mg Tablet 20 Mg PO DAILY Tramadol Hcl (Tramadol HCl) 50 Mg Tablet 50 Mg PO PRN TID PRN Integra F Capsule (Iron Fum & Ps Cmp/Fa/Vit C/B3) 1 Each Capsule 1 Each PO DAILY Namenda (Memantine Hcl) 10 Mg Tablet 10 Mg PO DAILY Aricept (Donepezil Hcl) 10 Mg Tablet 10 Mg PO DAILY [place] 5-325 Tablet (Hydrocodone Bit/Acetaminophen) 1 Each Tablet 1 Tab PO PRN Q6HRS PRN Protonix (Pantoprazole Sodium) 40 Mg Tablet.dr 40 Mg PO BID Furosemide 20 Mg Tablet 20 Mg PO PRN DAILY PRN Venlafaxine Hcl Er (Venlafaxine Hcl) 150 Mg Tab.er.24 150 Mg PO DAILY I have reviewed the current psychotropics carefully including drug interactions. Risk benefit ratio favors no change other than as noted in my dictated progress note. 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
--- NOTE | 2018-07-23 22:09 | PN ---
DATE: 07/23/2018 This note covers elements not covered in my initial note of 07/23/2018. SUBJECTIVE: I met with the patient in the evening in her room. The patient slept 8 hours previous night. She has been somewhat withdrawn, compliant with medication, but cooperative with case, not agitated. No suicidal ideation. We are going to check a valproic acid level in the morning. REVIEW OF SYSTEMS: Positive for some tiredness and she was in bed. No CV, , pulmonary, eye system symptoms on review. MENTAL STATUS EXAM: Oriented to herself and situation. Speech is coherent. Abstraction fair. Computation impaired. Language function intact. Attention span short. Mood and affect somewhat withdrawn. LABORATORY DATA: Reviewed. IMPRESSION: Bipolar 1 disorder, mixed with psychotic features; major neurocognitive disorder, early Alzheimer, vascular with depression. PLAN: Continue psychotropics mentioned in my initial note. We will check a valproic acid level, CBC, CMP in the morning. Adjust further as clinically indicated. Maintain Aricept, Namenda, Effexor, and Abilify for now together with Depakote. JUAN PABLO GUTIERREZ MD DR: AMILCAR/leighton JOB#: [id number] / [id number]
[2018-07-24] MEDS: LEVOTHYROXINE 50 MCG TABLET PO SCH (05:06)
[2018-07-24 06:03] VITALS: BP 136/68
[2018-07-24] MEDS: FERROUS SULFATE 325 MG TABLET. PO SCH ×2 (07:46→16:48)
[2018-07-24] MEDS: PANTOPRAZOLE 40 MG TABLET. PO SCH ×2 (07:46→16:48)
[2018-07-24] MEDS: DONEPEZIL HCL 10 MG TABLET PO SCH (07:46)
[2018-07-24] MEDS: MEMANTINE 10 MG TABLET. PO SCH ×2 (07:46→20:45)
[2018-07-24] MEDS: MULTIVITAMIN with MINERAL TABLET. PO SCH (07:46)
[2018-07-24] MEDS: VENLAFAXINE XR 37.5 MG CAP.ER.24H. PO SCH (07:46)
[2018-07-24] MEDS: LACTOBACILLUS RHAMNOSUS GG 1 CAPSULE. PO SCH ×2 (07:46→20:45)
[2018-07-24] MEDS: FUROSEMIDE 20 MG TABLET PO SCH (07:47)
[2018-07-24] MEDS: CYANOCOBALAMIN (VITAMIN B-12) 1,000 MCG TABLET. PO SCH (07:47)
[2018-07-24] MEDS: ARIPiprazole 5 MG TABLET PO SCH (07:48)
--- NOTE | 2018-07-24 10:16 | PN ---
DATE: 07/22/2018 PSYCHIATRIC PROGRESS NOTE This late entry 07/22/2018 covers elements not covered in my initial note. SUBJECTIVE: I met with the patient in the evening. The patient slept 6-1/2 hours previous night. She remains somewhat withdrawn, confused with short-term memory deficits, still depressed. REVIEW OF SYSTEMS: No CV, , pulmonary, eye, ENT system symptoms on review. Reliability varies. MENTAL STATUS EXAM: Oriented to herself and situation. Speech is coherent, rapid at times. Abstraction fair, computation impaired, language function intact, attention span short. Mood and affect remain somewhat anxious, labile at times. LABORATORY DATA: Reviewed. IMPRESSION: Bipolar 1 disorder, mixed, major neurocognitive disorder, Alzheimer, vascular with delusion. Rest unchanged. PLAN: Continue Aricept, Namenda, Effexor, and Abilify at current dosage, Depakote ER is 500 mg p.o. at bedtime. Check CBC, CMP, valproic acid level on 07/24/2018, then adjust Depakote to reach therapeutic level. We have attempted to get past psychiatric records from [facility] and they indicate they have no such records of her hospitalization from a psychiatric standpoint. We will check with the family to follow up. JUAN PABLO GUTIREREZ MD DR: AMILCAR/leighton JOB#: [id number] / [id number]
[2018-07-24 10:27] LABS: BASO % 1 % (0-3); EOS # 0.2 x10^3/uL (0.0-0.7); EOS % 5 % (0-3); HEMATOCRIT 33.9 % (36.0-47.0); HEMOGLOBIN 11.4 g/dL (12.0-15.5); LYMPH % 25 % (24-48); MEAN CORPUSCULAR HEMOGLOBIN 35 pg (25-35); MEAN CORPUSCULAR HGB CONC 34 g/dL (31-37); MEAN CORPUSCULAR VOLUME 104 fL (79-100); MONO # 0.4 x10^3/uL (0.0-1.1); MONO % 11 % (0-9); NEUT # 2.4 x10^3uL (1.8-7.7); NEUT % 59 % (31-73); PLATELET COUNT 82 x10^3/uL (140-400); RED BLOOD COUNT 3.26 x10^6/uL (3.50-5.40); RED CELL DISTRIBUTION WIDTH 14.1 % (11.5-14.5)
[2018-07-24 10:48] LABS: ALBUMIN 2.7 g/dL (3.4-5.0); ALBUMIN/GLOBULIN RATIO 0.6 (1.0-1.7); ALK PHOS 127 U/L (46-116); ALT (SGPT) 22 U/L (14-59); ANION GAP 9 (6-14); AST (SGOT) 52 U/L (15-37); BLOOD UREA NITROGEN 12 mg/dL (7-20); BUN/CREATININE RATIO 12 (6-20); CALCIUM 8.8 mg/dL (8.5-10.1); CARBON DIOXIDE 26 mmol/L (21-32); CHLORIDE 108 mmol/L (98-107); GFR 52.6; GLUCOSE 102 mg/dL (70-99); SODIUM 143 mmol/L (136-145); TOTAL BILIRUBIN 0.7 mg/dL (0.2-1.0); TOTAL PROTEIN 6.9 g/dL (6.4-8.2)
[2018-07-24 10:50] LABS: VAL ACID 63 mcg/mL (50-100)
[2018-07-24 11:04] LABS: PLT ESTIMATE DECREASED (ADEQUATE)
[2018-07-24 11:05] LABS: OVALOCYTES OCC
[2018-07-24 16:06] VITALS: BP 123/56
[2018-07-24] MEDS: DIVALPROEX ER 500 MG TAB.ER.24H PO SCH (20:45)
--- NOTE | 2018-07-24 22:43 | PDOC ---
Exam Note: Gume Note: Please also refer to the separate dictated note~for this date of service dictated separately.~Patient seen individually. Discussed the patient with Nursing staff reviewed the chart.~Reviewed interim history and current functioning. Reviewed vital signs,~Labs/ Radiology~and current medications noted below. Continue current treatment with the changes noted in the dictated addendum note Assessment: Vital Signs: Vital Signs Date Time Temp Pulse Resp B/P (MAP) Pulse Ox O2 Delivery O2 Flow Rate FiO2 07/24/18 16:06 97.8 90 20 123/56 (78) 98 07/24/18 06:03 Room Air I&O Intake and Output 07/24/18 07:01 Intake Total 1085 ml Balance 1085 ml Intake Oral 1085 ml Labs: Laboratory Tests Test 07/24/18 09:59 White Blood Count 4.0 x10^3/uL (4.0-11.0) Red Blood Count 3.26 x10^6/uL (3.50-5.40) L Hemoglobin 11.4 g/dL (12.0-15.5) L Hematocrit 33.9 % (36.0-47.0) L Mean Corpuscular Volume 104 fL (79-100) H Mean Corpuscular Hemoglobin 35 pg (25-35) Mean Corpuscular Hemoglobin Concent 34 g/dL (31-37) Red Cell Distribution Width 14.1 % (11.5-14.5) Platelet Count 82 x10^3/uL (140-400) L Neutrophils (%) (Auto) 59 % (31-73) Lymphocytes (%) (Auto) 25 % (24-48) Monocytes (%) (Auto) 11 % (0-9) H Eosinophils (%) (Auto) 5 % (0-3) H Basophils (%) (Auto) 1 % (0-3) Neutrophils # (Auto) 2.4 x10^3uL (1.8-7.7) Lymphocytes # (Auto) 1.0 x10^3/uL (1.0-4.8) Monocytes # (Auto) 0.4 x10^3/uL (0.0-1.1) Eosinophils # (Auto) 0.2 x10^3/uL (0.0-0.7) Basophils # (Auto) 0.0 x10^3/uL (0.0-0.2) Platelet Estimate Decreased (ADEQUATE) Large Platelets Occ Macrocytosis Slight Ovalocytes Occ Sodium Level 143 mmol/L (136-145) Potassium Level 4.0 mmol/L (3.5-5.1) Chloride Level 108 mmol/L (98-107) H Carbon Dioxide Level 26 mmol/L (21-32) Anion Gap 9 (6-14) Blood Urea Nitrogen 12 mg/dL (7-20) Creatinine 1.0 mg/dL (0.6-1.0) Estimated GFR (Cockcroft-Gault) 52.6 BUN/Creatinine Ratio 12 (6-20) Glucose Level 102 mg/dL (70-99) H Calcium Level 8.8 mg/dL (8.5-10.1) Total Bilirubin 0.7 mg/dL (0.2-1.0) Aspartate Amino Transferase (AST) 52 U/L (15-37) H Alanine Aminotransferase (ALT) 22 U/L (14-59) Alkaline Phosphatase 127 U/L (46-116) H Total Protein 6.9 g/dL (6.4-8.2) Albumin 2.7 g/dL (3.4-5.0) L Albumin/Globulin Ratio 0.6 (1.0-1.7) L Valproic Acid Level 63 mcg/mL (50-100) Valproic Acid Last Dose Date 07/23/18 Valproic Acid Last Dose Time 2100 Current Medications: Meds: Current Medications Acetaminophen (Tylenol) 650 mg PRN Q6HRS PRN PO PAIN / TEMP; Start 07/13/18 at 23:30 Multi-Ingredient Ointment (Analgesic [place]) 1 eleazar PRN QID PRN TP MUSCLE PAIN; Start 07/13/18 at 23:30 Al Hydroxide/Mg Hydroxide (Mylanta Plus Xs) 15 ml PRN AFTMEALHC PRN PO DYSPEPSIA; Start 07/13/18 at 23:30 Magnesium Hydroxide (Milk Of Magnesia) 2,400 mg PRN QHS PRN PO CONSTIPATION; Start 07/13/18 at 23:30 Citalopram Hydrobromide (CeleXA) 20 mg DAILY PO Last administered on at 07:30; Start 07/14/18 at 09:00; Stop 07/15/18 at 13:37; Status DC Cyanocobalamin (Vitamin B-12) 1,000 mcg DAILY PO Last administered on 07/24/18 07:47; Start 07/14/18 at 09:00 Levothyroxine Sodium (Synthroid) 100 mcg DAILYAC PO Last administered on at 08:12; Start 07/14/18 at 07:30; Stop 07/14/18 at 18:53; Status DC Donepezil HCl (Aricept) 10 mg DAILY PO Last administered on 07/24/18 07:46; Start 07/14/18 at 09:00 Memantine (Namenda) 10 mg DAILY PO Last administered on 07/16/18at 07:29; Start 07/14/18 at 09:00; Stop 07/16/18 at 20:19; Status DC Pantoprazole Sodium (Protonix) 40 mg BIDBFRMEAL PO Last administered on 16:48; Start 07/14/18 at 07:30 Venlafaxine HCl (Effexor) 50 mg TID PO Last administered on 07/17/18 19:30; Start 07/14/18 at 09:00; Stop 07/17/18 at 20:56; Status DC Furosemide (Lasix) 20 mg DAILY PO Last administered on 07/24/18 07:47; Start 07/14/18 at 09:00 Tramadol HCl (Ultram) 50 mg PRN TID PRN PO PAIN Last administered on 07/22/18 23:57; Start 07/14/18 at 01:15 Acetaminophen/ Hydrocodone Bitart (Lortab 5/325) 1 tab PRN Q6HRS PRN PO PAIN Last administered on 07/23/18 05:55; Start 07/14/18 at 01:15 Non-Formulary Medication (Iron Fum & Ps Cmp/Fa/Vit C/B3 (Integra F Capsule)) 1 each DAILY PO ; Start 07/14/18 at 09:00; Stop 07/15/18 at 16:24; Status DC Multivitamins/ Calcium (Thera-M Plus) 1 tab DAILY PO Last administered on 07:46; Start 07/14/18 at 09:00 Trimethoprim/ Sulfamethoxazole (Bactrim Ds) 1 tab BID PO Last administered on 07/15/18at 07:29; Start 07/14/18 at 09:00; Stop 07/15/18 at 18:43; Status DC Levothyroxine Sodium (Synthroid) 50 mcg DAILY06 PO Last administered on 05:06; Start 07/15/18 at 06:00 Lactobacillus Rhamnosus (Culturelle) 1 cap BID PO Last administered on 20:45; Start 07/15/18 at 09:00 Aripiprazole (Abilify) 2.5 mg DAILY PO Last administered on 07/24/18 07:48; Start 07/16/18 at 09:00 Ferrous Sulfate (Feosol) 325 mg BIDWMEALS PO Last administered on 07/24/18 16: 48; Start 07/15/18 at 17:00 Amoxicillin (Amoxil) 250 mg [id number] PO Last administered on 07/22/18 19:54; Start 07/15/18 at 21:00; Stop 07/22/18 at 22:00; Status DC Memantine (Namenda) 10 mg BID PO Last administered on 07/24/18 20:45; Start at 20:30 Venlafaxine HCl (Effexor Xr) 150 mg DAILY PO Last administered on 07/24/18 07: 46; Start 07/18/18 at 09:00 Divalproex Sodium (Depakote Er) 500 mg QHS PO Last administered on 07/24/18 20: 45; Start 07/21/18 at 21:00 Active Scripts Active Reported Multivitamins (Multivitamin) 1 Each Tablet 1 Each PO DAILY Levothyroxine Sodium 100 Mcg Tablet 100 Mcg PO DAILYAC Vitamin B-12 (Cyanocobalamin (Vitamin B-12)) 1,000 Mcg Tablet 1,000 Mcg PO DAILY Celexa (Citalopram Hydrobromide) 20 Mg Tablet 20 Mg PO DAILY Tramadol Hcl (Tramadol HCl) 50 Mg Tablet 50 Mg PO PRN TID PRN Integra F Capsule (Iron Fum & Ps Cmp/Fa/Vit C/B3) 1 Each Capsule 1 Each PO DAILY Namenda (Memantine Hcl) 10 Mg Tablet 10 Mg PO DAILY Aricept (Donepezil Hcl) 10 Mg Tablet 10 Mg PO DAILY [place] 5-325 Tablet (Hydrocodone Bit/Acetaminophen) 1 Each Tablet 1 Tab PO PRN Q6HRS PRN Protonix (Pantoprazole Sodium) 40 Mg Tablet.dr 40 Mg PO BID Furosemide 20 Mg Tablet 20 Mg PO PRN DAILY PRN Venlafaxine Hcl Er (Venlafaxine Hcl) 150 Mg Tab.er.24 150 Mg PO DAILY I have reviewed the current psychotropics carefully including drug interactions. Risk benefit ratio favors no change other than as noted in my dictated progress note. 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
[2018-07-25 05:41] VITALS: BP 153/63
[2018-07-25] MEDS: LEVOTHYROXINE 50 MCG TABLET PO SCH (06:02)
[2018-07-25] MEDS: LACTOBACILLUS RHAMNOSUS GG 1 CAPSULE. PO SCH ×2 (07:22→20:00)
[2018-07-25] MEDS: DONEPEZIL HCL 10 MG TABLET PO SCH (07:22)
[2018-07-25] MEDS: ARIPiprazole 5 MG TABLET PO SCH (07:22)
[2018-07-25] MEDS: VENLAFAXINE XR 37.5 MG CAP.ER.24H. PO SCH (07:22)
[2018-07-25] MEDS: FERROUS SULFATE 325 MG TABLET. PO SCH ×2 (07:22→16:39)
[2018-07-25] MEDS: MULTIVITAMIN with MINERAL TABLET. PO SCH (07:23)
[2018-07-25] MEDS: PANTOPRAZOLE 40 MG TABLET. PO SCH ×2 (07:23→16:39)
[2018-07-25] MEDS: MEMANTINE 10 MG TABLET. PO SCH ×2 (07:23→20:01)
[2018-07-25] MEDS: FUROSEMIDE 20 MG TABLET PO SCH (07:23)
[2018-07-25] MEDS: CYANOCOBALAMIN (VITAMIN B-12) 1,000 MCG TABLET. PO SCH (07:23)
[2018-07-25 16:05] VITALS: BP 166/74
[2018-07-25] MEDS: DIVALPROEX ER 500 MG TAB.ER.24H PO SCH (20:00)
--- NOTE | 2018-07-25 22:37 | PDOC ---
Exam Note: Gume Note: Please also refer to the separate dictated note~for this date of service dictated separately.~Patient seen individually. Discussed the patient with Nursing staff reviewed the chart.~Reviewed interim history and current functioning. Reviewed vital signs,~Labs/ Radiology~and current medications noted below. Continue current treatment with the changes noted in the dictated addendum note Assessment: Vital Signs: Vital Signs Date Time Temp Pulse Resp B/P (MAP) Pulse Ox O2 Delivery O2 Flow Rate FiO2 07/25/18 16:05 97.3 83 18 166/74 (104) 98 07/24/18 06:03 Room Air I&O Intake and Output 07/25/18 07:01 Intake Total 820 ml Balance 820 ml Intake Oral 820 ml Current Medications: Meds: Current Medications Acetaminophen (Tylenol) 650 mg PRN Q6HRS PRN PO PAIN / TEMP; Start 07/13/18 at 23:30 Multi-Ingredient Ointment (Analgesic [place]) 1 eleazar PRN QID PRN TP MUSCLE PAIN; Start 07/13/18 at 23:30 Al Hydroxide/Mg Hydroxide (Mylanta Plus Xs) 15 ml PRN AFTMEALHC PRN PO DYSPEPSIA; Start 07/13/18 at 23:30 Magnesium Hydroxide (Milk Of Magnesia) 2,400 mg PRN QHS PRN PO CONSTIPATION; Start 07/13/18 at 23:30 Citalopram Hydrobromide (CeleXA) 20 mg DAILY PO Last administered on at 07:30; Start 07/14/18 at 09:00; Stop 07/15/18 at 13:37; Status DC Cyanocobalamin (Vitamin B-12) 1,000 mcg DAILY PO Last administered on 07/25/18at 07:23; Start 07/14/18 at 09:00 Levothyroxine Sodium (Synthroid) 100 mcg DAILYAC PO Last administered on at 08:12; Start 07/14/18 at 07:30; Stop 07/14/18 at 18:53; Status DC Donepezil HCl (Aricept) 10 mg DAILY PO Last administered on 07/25/18at 07:22; Start 07/14/18 at 09:00 Memantine (Namenda) 10 mg DAILY PO Last administered on 07/16/18at 07:29; Start 07/14/18 at 09:00; Stop 07/16/18 at 20:19; Status DC Pantoprazole Sodium (Protonix) 40 mg BIDBFRMEAL PO Last administered on 16:39; Start 07/14/18 at 07:30 Venlafaxine HCl (Effexor) 50 mg TID PO Last administered on 07/17/18at 19:30; Start 07/14/18 at 09:00; Stop 07/17/18 at 20:56; Status DC Furosemide (Lasix) 20 mg DAILY PO Last administered on 07/25/18 07:23; Start 07/14/18 at 09:00 Tramadol HCl (Ultram) 50 mg PRN TID PRN PO PAIN Last administered on 07/22/18 23:57; Start 07/14/18 at 01:15 Acetaminophen/ Hydrocodone Bitart (Lortab 5/325) 1 tab PRN Q6HRS PRN PO PAIN Last administered on 07/23/18 05:55; Start 07/14/18 at 01:15 Non-Formulary Medication (Iron Fum & Ps Cmp/Fa/Vit C/B3 (Integra F Capsule)) 1 each DAILY PO ; Start 07/14/18 at 09:00; Stop 07/15/18 at 16:24; Status DC Multivitamins/ Calcium (Thera-M Plus) 1 tab DAILY PO Last administered on 07:23; Start 07/14/18 at 09:00 Trimethoprim/ Sulfamethoxazole (Bactrim Ds) 1 tab BID PO Last administered on 07/15/18at 07:29; Start 07/14/18 at 09:00; Stop 07/15/18 at 18:43; Status DC Levothyroxine Sodium (Synthroid) 50 mcg DAILY06 PO Last administered on 06:02; Start 07/15/18 at 06:00 Lactobacillus Rhamnosus (Culturelle) 1 cap BID PO Last administered on 20:00; Start 07/15/18 at 09:00 Aripiprazole (Abilify) 2.5 mg DAILY PO Last administered on 07/25/18 07:22; Start 07/16/18 at 09:00 Ferrous Sulfate (Feosol) 325 mg BIDWMEALS PO Last administered on 07/25/18 16: 39; Start 07/15/18 at 17:00 Amoxicillin (Amoxil) 250 mg [id number] PO Last administered on 07/22/18 19:54; Start 07/15/18 at 21:00; Stop 07/22/18 at 22:00; Status DC Memantine (Namenda) 10 mg BID PO Last administered on 07/25/18 20:01; Start at 20:30 Venlafaxine HCl (Effexor Xr) 150 mg DAILY PO Last administered on 07/25/18 07: 22; Start 07/18/18 at 09:00 Divalproex Sodium (Depakote Er) 500 mg QHS PO Last administered on 07/25/18 20: 00; Start 07/21/18 at 21:00 Active Scripts Active Reported Multivitamins (Multivitamin) 1 Each Tablet 1 Each PO DAILY Levothyroxine Sodium 100 Mcg Tablet 100 Mcg PO DAILYAC Vitamin B-12 (Cyanocobalamin (Vitamin B-12)) 1,000 Mcg Tablet 1,000 Mcg PO DAILY Celexa (Citalopram Hydrobromide) 20 Mg Tablet 20 Mg PO DAILY Tramadol Hcl (Tramadol HCl) 50 Mg Tablet 50 Mg PO PRN TID PRN Integra F Capsule (Iron Fum & Ps Cmp/Fa/Vit C/B3) 1 Each Capsule 1 Each PO DAILY Namenda (Memantine Hcl) 10 Mg Tablet 10 Mg PO DAILY Aricept (Donepezil Hcl) 10 Mg Tablet 10 Mg PO DAILY [place] 5-325 Tablet (Hydrocodone Bit/Acetaminophen) 1 Each Tablet 1 Tab PO PRN Q6HRS PRN Protonix (Pantoprazole Sodium) 40 Mg Tablet.dr 40 Mg PO BID Furosemide 20 Mg Tablet 20 Mg PO PRN DAILY PRN Venlafaxine Hcl Er (Venlafaxine Hcl) 150 Mg Tab.er.24 150 Mg PO DAILY I have reviewed the current psychotropics carefully including drug interactions. Risk benefit ratio favors no change other than as noted in my dictated progress note. 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
--- NOTE | 2018-07-25 23:38 | PN ---
DATE: 07/24/2018 PSYCHIATRIC PROGRESS NOTE This late entry 07/24/2018 covers elements, not covered in my initial note. SUBJECTIVE: I met with the patient in the evening. The patient slept 9 hours previous night. She has been up for meals, otherwise, withdrawn. Valproic acid level is 63. REVIEW OF SYSTEMS: No CV, , pulmonary, eye, ENT system symptoms on review. Gait unsteady with walker. Reliability varies. MENTAL STATUS EXAM: Oriented to herself and situation. Speech has some latency, coherent. Abstraction fair, computation impaired, language function intact, attention span short. Mood and affect somewhat withdrawn. LABORATORY DATA: Reviewed. IMPRESSION: Unchanged from initial note. PLAN: No change from initial note. MAN Jorge GUTIERREZ MD DR: AMILCAR/leighton JOB#: [id number] / [id number]
[2018-07-26 05:37] VITALS: BP 131/61
[2018-07-26] MEDS: LEVOTHYROXINE 50 MCG TABLET PO SCH (06:00)
[2018-07-26] MEDS: MEMANTINE 10 MG TABLET. PO SCH ×2 (07:51→19:36)
[2018-07-26] MEDS: MULTIVITAMIN with MINERAL TABLET. PO SCH (07:51)
[2018-07-26] MEDS: LACTOBACILLUS RHAMNOSUS GG 1 CAPSULE. PO SCH ×2 (07:51→19:36)
[2018-07-26] MEDS: PANTOPRAZOLE 40 MG TABLET. PO SCH ×2 (07:51→16:33)
[2018-07-26] MEDS: ARIPiprazole 5 MG TABLET PO SCH (07:51)
[2018-07-26] MEDS: FUROSEMIDE 20 MG TABLET PO SCH (07:51)
[2018-07-26] MEDS: DONEPEZIL HCL 10 MG TABLET PO SCH (07:51)
[2018-07-26] MEDS: FERROUS SULFATE 325 MG TABLET. PO SCH ×2 (07:51→16:33)
[2018-07-26] MEDS: CYANOCOBALAMIN (VITAMIN B-12) 1,000 MCG TABLET. PO SCH (07:51)
[2018-07-26] MEDS: VENLAFAXINE XR 37.5 MG CAP.ER.24H. PO SCH (07:51)
[2018-07-26 15:46] VITALS: BP 169/69
[2018-07-26] MEDS: DIVALPROEX ER 500 MG TAB.ER.24H PO SCH (19:36)
--- NOTE | 2018-07-26 22:57 | PDOC ---
Exam Note: Gume Note: Please also refer to the separate dictated note~for this date of service dictated separately.~Patient seen individually. Discussed the patient with Nursing staff reviewed the chart.~Reviewed interim history and current functioning. Reviewed vital signs,~Labs/ Radiology~and current medications noted below. Continue current treatment with the changes noted in the dictated addendum note Assessment: Vital Signs: Vital Signs Date Time Temp Pulse Resp B/P (MAP) Pulse Ox O2 Delivery O2 Flow Rate FiO2 07/26/18 15:46 98.9 89 16 169/69 (102) 99 07/24/18 06:03 Room Air I&O Intake and Output 07/26/18 07:01 Intake Total 840 ml Balance 840 ml Intake Oral 840 ml Current Medications: Meds: Current Medications Acetaminophen (Tylenol) 650 mg PRN Q6HRS PRN PO PAIN / TEMP; Start 07/13/18 at 23:30 Multi-Ingredient Ointment (Analgesic [place]) 1 eleazar PRN QID PRN TP MUSCLE PAIN; Start 07/13/18 at 23:30 Al Hydroxide/Mg Hydroxide (Mylanta Plus Xs) 15 ml PRN AFTMEALHC PRN PO DYSPEPSIA; Start 07/13/18 at 23:30 Magnesium Hydroxide (Milk Of Magnesia) 2,400 mg PRN QHS PRN PO CONSTIPATION; Start 07/13/18 at 23:30 Citalopram Hydrobromide (CeleXA) 20 mg DAILY PO Last administered on at 07:30; Start 07/14/18 at 09:00; Stop 07/15/18 at 13:37; Status DC Cyanocobalamin (Vitamin B-12) 1,000 mcg DAILY PO Last administered on 07/26/18at 07:51; Start 07/14/18 at 09:00 Levothyroxine Sodium (Synthroid) 100 mcg DAILYAC PO Last administered on at 08:12; Start 07/14/18 at 07:30; Stop 07/14/18 at 18:53; Status DC Donepezil HCl (Aricept) 10 mg DAILY PO Last administered on 07/26/18 07:51; Start 07/14/18 at 09:00 Memantine (Namenda) 10 mg DAILY PO Last administered on 07/16/18at 07:29; Start 07/14/18 at 09:00; Stop 07/16/18 at 20:19; Status DC Pantoprazole Sodium (Protonix) 40 mg BIDBFRMEAL PO Last administered on 16:33; Start 07/14/18 at 07:30 Venlafaxine HCl (Effexor) 50 mg TID PO Last administered on 07/17/18at 19:30; Start 07/14/18 at 09:00; Stop 07/17/18 at 20:56; Status DC Furosemide (Lasix) 20 mg DAILY PO Last administered on 07/26/18 07:51; Start 07/14/18 at 09:00 Tramadol HCl (Ultram) 50 mg PRN TID PRN PO PAIN Last administered on 07/22/18 23:57; Start 07/14/18 at 01:15 Acetaminophen/ Hydrocodone Bitart (Lortab 5/325) 1 tab PRN Q6HRS PRN PO PAIN Last administered on 07/23/18 05:55; Start 07/14/18 at 01:15 Non-Formulary Medication (Iron Fum & Ps Cmp/Fa/Vit C/B3 (Integra F Capsule)) 1 each DAILY PO ; Start 07/14/18 at 09:00; Stop 07/15/18 at 16:24; Status DC Multivitamins/ Calcium (Thera-M Plus) 1 tab DAILY PO Last administered on 07:51; Start 07/14/18 at 09:00 Trimethoprim/ Sulfamethoxazole (Bactrim Ds) 1 tab BID PO Last administered on 07/15/18at 07:29; Start 07/14/18 at 09:00; Stop 07/15/18 at 18:43; Status DC Levothyroxine Sodium (Synthroid) 50 mcg DAILY06 PO Last administered on 06:02; Start 07/15/18 at 06:00 Lactobacillus Rhamnosus (Culturelle) 1 cap BID PO Last administered on 19:36; Start 07/15/18 at 09:00 Aripiprazole (Abilify) 2.5 mg DAILY PO Last administered on 07/26/18 07:51; Start 07/16/18 at 09:00 Ferrous Sulfate (Feosol) 325 mg BIDWMEALS PO Last administered on 07/26/18 16: 33; Start 07/15/18 at 17:00 Amoxicillin (Amoxil) 250 mg [id number] PO Last administered on 07/22/18 19:54; Start 07/15/18 at 21:00; Stop 07/22/18 at 22:00; Status DC Memantine (Namenda) 10 mg BID PO Last administered on 07/26/18 19:36; Start at 20:30 Venlafaxine HCl (Effexor Xr) 150 mg DAILY PO Last administered on 07/26/18 07: 51; Start 07/18/18 at 09:00 Divalproex Sodium (Depakote Er) 500 mg QHS PO Last administered on 07/26/18 19: 36; Start 07/21/18 at 21:00 Active Scripts Active Reported Multivitamins (Multivitamin) 1 Each Tablet 1 Each PO DAILY Levothyroxine Sodium 100 Mcg Tablet 100 Mcg PO DAILYAC Vitamin B-12 (Cyanocobalamin (Vitamin B-12)) 1,000 Mcg Tablet 1,000 Mcg PO DAILY Celexa (Citalopram Hydrobromide) 20 Mg Tablet 20 Mg PO DAILY Tramadol Hcl (Tramadol HCl) 50 Mg Tablet 50 Mg PO PRN TID PRN Integra F Capsule (Iron Fum & Ps Cmp/Fa/Vit C/B3) 1 Each Capsule 1 Each PO DAILY Namenda (Memantine Hcl) 10 Mg Tablet 10 Mg PO DAILY Aricept (Donepezil Hcl) 10 Mg Tablet 10 Mg PO DAILY [place] 5-325 Tablet (Hydrocodone Bit/Acetaminophen) 1 Each Tablet 1 Tab PO PRN Q6HRS PRN Protonix (Pantoprazole Sodium) 40 Mg Tablet.dr 40 Mg PO BID Furosemide 20 Mg Tablet 20 Mg PO PRN DAILY PRN Venlafaxine Hcl Er (Venlafaxine Hcl) 150 Mg Tab.er.24 150 Mg PO DAILY I have reviewed the current psychotropics carefully including drug interactions. Risk benefit ratio favors no change other than as noted in my dictated progress note. 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
--- NOTE | 2018-07-27 01:07 | PN ---
DATE: 07/25/2018 PSYCHIATRIC PROGRESS NOTE This late entry 07/25/2018 covers elements not covered in my initial note. SUBJECTIVE: I met with the patient in the evening. The patient slept 9 hours previous night. She has been up for meals, still somewhat withdrawn, but by the evening when I met with her, she was ambulating around the unit with her walker and another patient following her. Valproic acid level is therapeutic at 63. She slept 8-3/4 hours previous night, compliant with medications, spending more time in the day room, less sedated. REVIEW OF SYSTEMS: Ambulation impaired with walker. No CV, , pulmonary, eye, ENT system symptoms on review. Reliability poor. MENTAL STATUS EXAM: Oriented to herself. Insight, judgment, recent and remote memory, attention, concentration, fund of knowledge poor, consistent with her diagnosis mentioned in my initial note. PLAN: No change from initial note. The patient seems to be adjusting to the Depakote to the extent. This was causing sedation and impaired ambulation. It appears to be improving. Rest unchanged. MAN Jorge GUTIERREZ MD DR: AMILCAR/leighton JOB#: [id number] / [id number]
[2018-07-27] MEDS: LEVOTHYROXINE 50 MCG TABLET PO SCH (05:54)
[2018-07-27 05:55] VITALS: BP 136/72
[2018-07-27] MEDS: MULTIVITAMIN with MINERAL TABLET. PO SCH (08:27)
[2018-07-27] MEDS: PANTOPRAZOLE 40 MG TABLET. PO SCH ×2 (08:28→17:03)
[2018-07-27] MEDS: FERROUS SULFATE 325 MG TABLET. PO SCH ×2 (08:28→17:03)
[2018-07-27] MEDS: CYANOCOBALAMIN (VITAMIN B-12) 1,000 MCG TABLET. PO SCH (08:30)
[2018-07-27] MEDS: LACTOBACILLUS RHAMNOSUS GG 1 CAPSULE. PO SCH ×2 (08:30→20:04)
[2018-07-27] MEDS: ARIPiprazole 5 MG TABLET PO SCH (08:30)
[2018-07-27] MEDS: MEMANTINE 10 MG TABLET. PO SCH ×2 (08:30→20:04)
[2018-07-27] MEDS: VENLAFAXINE XR 37.5 MG CAP.ER.24H. PO SCH (08:30)
[2018-07-27] MEDS: DONEPEZIL HCL 10 MG TABLET PO SCH (08:30)
[2018-07-27] MEDS: FUROSEMIDE 20 MG TABLET PO SCH (08:30)
--- NOTE | 2018-07-27 13:40 | PN ---
DATE: 07/26/2018 PSYCHIATRIC PROGRESS NOTE This late entry, 07/26/2018, covers elements not covered in my initial note. SUBJECTIVE: I met with the patient in the evening. The patient slept 4-3/4 hours previous night. She remains confused, somewhat withdrawn, compliant, takes her medications whole. By the time I met with her in the evening, she was quite withdrawn, somewhat sedated, but nursing staff states all day she was up and about ambulating with a walker. REVIEW OF SYSTEMS: No CV, , pulmonary, eye, ENT system symptoms on review other than some tiredness. Reliability poor. MENTAL STATUS EXAM: Oriented to herself and situation. Speech, often responses monosyllabic, has some latency. Abstraction fair, computation impaired, language function intact. Mood and affect withdrawn. LABORATORY DATA: Reviewed. IMPRESSION: Bipolar 1 disorder, mixed with psychotic features; major neurocognitive disorder, Alzheimer, vascular with delusion, depression. Rest unchanged. PLAN: No change from initial note. If she continues to be sedated, we may reduce the Depakote or stop the Abilify. JUAN PABLO GUTIERREZ MD DR: AMILCAR/leighton JOB#: [id number] / [id number]
[2018-07-27 16:20] VITALS: BP 139/58
--- NOTE | 2018-07-27 22:46 | PDOC ---
Exam Note: Gume Note: Please also refer to the separate dictated note~for this date of service dictated separately.~Patient seen individually. Discussed the patient with Nursing staff reviewed the chart.~Reviewed interim history and current functioning. Reviewed vital signs,~Labs/ Radiology~and current medications noted below. Continue current treatment with the changes noted in the dictated addendum note Assessment: Vital Signs: Vital Signs Date Time Temp Pulse Resp B/P (MAP) Pulse Ox O2 Delivery O2 Flow Rate FiO2 07/27/18 16:20 98.5 76 17 139/58 (85) 93 07/24/18 06:03 Room Air I&O Intake and Output 07/27/18 07:01 Intake Total 480 ml Balance 480 ml Intake Oral 480 ml Current Medications: Meds: Current Medications Acetaminophen (Tylenol) 650 mg PRN Q6HRS PRN PO PAIN / TEMP; Start 07/13/18 at 23:30 Multi-Ingredient Ointment (Analgesic [place]) 1 eleazar PRN QID PRN TP MUSCLE PAIN; Start 07/13/18 at 23:30 Al Hydroxide/Mg Hydroxide (Mylanta Plus Xs) 15 ml PRN AFTMEALHC PRN PO DYSPEPSIA; Start 07/13/18 at 23:30 Magnesium Hydroxide (Milk Of Magnesia) 2,400 mg PRN QHS PRN PO CONSTIPATION; Start 07/13/18 at 23:30 Citalopram Hydrobromide (CeleXA) 20 mg DAILY PO Last administered on at 07:30; Start 07/14/18 at 09:00; Stop 07/15/18 at 13:37; Status DC Cyanocobalamin (Vitamin B-12) 1,000 mcg DAILY PO Last administered on 07/27/18at 08:30; Start 07/14/18 at 09:00 Levothyroxine Sodium (Synthroid) 100 mcg DAILYAC PO Last administered on at 08:12; Start 07/14/18 at 07:30; Stop 07/14/18 at 18:53; Status DC Donepezil HCl (Aricept) 10 mg DAILY PO Last administered on 07/27/18 08:30; Start 07/14/18 at 09:00 Memantine (Namenda) 10 mg DAILY PO Last administered on 07/16/18at 07:29; Start 07/14/18 at 09:00; Stop 07/16/18 at 20:19; Status DC Pantoprazole Sodium (Protonix) 40 mg BIDBFRMEAL PO Last administered on 17:03; Start 07/14/18 at 07:30 Venlafaxine HCl (Effexor) 50 mg TID PO Last administered on 07/17/18 19:30; Start 07/14/18 at 09:00; Stop 07/17/18 at 20:56; Status DC Furosemide (Lasix) 20 mg DAILY PO Last administered on 07/27/18 08:30; Start 07/14/18 at 09:00 Tramadol HCl (Ultram) 50 mg PRN TID PRN PO PAIN Last administered on 07/22/18 23:57; Start 07/14/18 at 01:15 Acetaminophen/ Hydrocodone Bitart (Lortab 5/325) 1 tab PRN Q6HRS PRN PO PAIN Last administered on 07/23/18 05:55; Start 07/14/18 at 01:15 Non-Formulary Medication (Iron Fum & Ps Cmp/Fa/Vit C/B3 (Integra F Capsule)) 1 each DAILY PO ; Start 07/14/18 at 09:00; Stop 07/15/18 at 16:24; Status DC Multivitamins/ Calcium (Thera-M Plus) 1 tab DAILY PO Last administered on 08:27; Start 07/14/18 at 09:00 Trimethoprim/ Sulfamethoxazole (Bactrim Ds) 1 tab BID PO Last administered on 07/15/18at 07:29; Start 07/14/18 at 09:00; Stop 07/15/18 at 18:43; Status DC Levothyroxine Sodium (Synthroid) 50 mcg DAILY06 PO Last administered on 05:54; Start 07/15/18 at 06:00 Lactobacillus Rhamnosus (Culturelle) 1 cap BID PO Last administered on 20:04; Start 07/15/18 at 09:00 Aripiprazole (Abilify) 2.5 mg DAILY PO Last administered on 07/27/18 08:30; Start 07/16/18 at 09:00 Ferrous Sulfate (Feosol) 325 mg BIDWMEALS PO Last administered on 07/27/18 17: 03; Start 07/15/18 at 17:00 Amoxicillin (Amoxil) 250 mg [id number] PO Last administered on 07/22/18 19:54; Start 07/15/18 at 21:00; Stop 07/22/18 at 22:00; Status DC Memantine (Namenda) 10 mg BID PO Last administered on 07/27/18 20:04; Start at 20:30 Venlafaxine HCl (Effexor Xr) 150 mg DAILY PO Last administered on 07/27/18 08: 30; Start 07/18/18 at 09:00 Divalproex Sodium (Depakote Er) 500 mg QHS PO Last administered on 07/26/18 19: 36; Start 07/21/18 at 21:00; Stop 07/27/18 at 14:31; Status DC Active Scripts Active Reported Multivitamins (Multivitamin) 1 Each Tablet 1 Each PO DAILY Levothyroxine Sodium 100 Mcg Tablet 100 Mcg PO DAILYAC Vitamin B-12 (Cyanocobalamin (Vitamin B-12)) 1,000 Mcg Tablet 1,000 Mcg PO DAILY Celexa (Citalopram Hydrobromide) 20 Mg Tablet 20 Mg PO DAILY Tramadol Hcl (Tramadol HCl) 50 Mg Tablet 50 Mg PO PRN TID PRN Integra F Capsule (Iron Fum & Ps Cmp/Fa/Vit C/B3) 1 Each Capsule 1 Each PO DAILY Namenda (Memantine Hcl) 10 Mg Tablet 10 Mg PO DAILY Aricept (Donepezil Hcl) 10 Mg Tablet 10 Mg PO DAILY [place] 5-325 Tablet (Hydrocodone Bit/Acetaminophen) 1 Each Tablet 1 Tab PO PRN Q6HRS PRN Protonix (Pantoprazole Sodium) 40 Mg Tablet.dr 40 Mg PO BID Furosemide 20 Mg Tablet 20 Mg PO PRN DAILY PRN Venlafaxine Hcl Er (Venlafaxine Hcl) 150 Mg Tab.er.24 150 Mg PO DAILY I have reviewed the current psychotropics carefully including drug interactions. Risk benefit ratio favors no change other than as noted in my dictated progress note. Diagnosis: Problems: (1) Anxiety disorder (2) Bipolar affective disorder, mixed (3) Dementia, vascular, with delusions (4) Dementia, vascular, with depression (5) Dementia in Alzheimer's disease with delusions (6) Dementia in Alzheimer's disease with depression (7) Impulse control disorder JUAN PABLO GUTIERREZ MD Jul 27, 2018 22:46
[2018-07-28 05:50] VITALS: BP 150/66
[2018-07-28] MEDS: LEVOTHYROXINE 50 MCG TABLET PO SCH (05:56)
[2018-07-28] MEDS: FUROSEMIDE 20 MG TABLET PO SCH (08:13)
[2018-07-28] MEDS: MEMANTINE 10 MG TABLET. PO SCH ×2 (08:13→19:26)
[2018-07-28] MEDS: VENLAFAXINE XR 37.5 MG CAP.ER.24H. PO SCH (08:14)
[2018-07-28] MEDS: LACTOBACILLUS RHAMNOSUS GG 1 CAPSULE. PO SCH ×2 (08:14→19:26)
[2018-07-28] MEDS: DONEPEZIL HCL 10 MG TABLET PO SCH (08:14)
[2018-07-28] MEDS: ARIPiprazole 5 MG TABLET PO SCH (08:14)
[2018-07-28] MEDS: PANTOPRAZOLE 40 MG TABLET. PO SCH ×2 (08:15→17:42)
[2018-07-28] MEDS: CYANOCOBALAMIN (VITAMIN B-12) 1,000 MCG TABLET. PO SCH (08:15)
[2018-07-28] MEDS: FERROUS SULFATE 325 MG TABLET. PO SCH ×2 (08:15→17:42)
[2018-07-28] MEDS: MULTIVITAMIN with MINERAL TABLET. PO SCH (08:15)
[2018-07-28 15:56] VITALS: BP 134/73
--- NOTE | 2018-07-28 19:58 | PN ---
DATE: 07/27/2018 This late entry for 07/27/2018 covers elements not covered in my initial note. SUBJECTIVE: I met with the patient in the evening and staffed at treatment team meeting with the entire team in the afternoon. The patient slept 9-3/4 hours previous evening. Appetite 80%. She is sleeping about 8 hours average. She has been somewhat tired, withdrawn. We are awaiting the results of her repeat UA. Also, the Depakote was discontinued consequent to her sedation and she has been slowly a little more awake. REVIEW OF SYSTEMS: Ambulation impaired with walker. No CV, , pulmonary, eye system symptoms on review. MENTAL STATUS EXAM: Oriented to herself and situation. Speech moderate latency, often responses monosyllabic. Abstraction fair, computation impaired, language function intact, attention span short. Mood and affect somewhat withdrawn. LABORATORY DATA: Reviewed. IMPRESSION: Major neurocognitive disorder, Alzheimer, vascular with delusion, depression, behavioral disturbance, bipolar 1 disorder, unspecified; anxiety disorder, unspecified. PLAN: Stop the Depakote given her sedation. Continue rest of the psychotropics. Hopefully, the Abilify by itself should be adequate as a mood stabilizer. We will continue Aricept, Namenda and Effexor unchanged for now. JUAN PABLO GUTIERREZ MD DR: AMILCAR/leighton JOB#: [id number] / [id number]
--- NOTE | 2018-07-28 22:18 | PN ---
DATE: 07/28/2018 This note covers elements not covered in my initial note. SUBJECTIVE: I met with the patient in her room in the afternoon. The patient slept 7-1/2 hours previous night, has been somewhat drowsy at times, did not eat breakfast, but did better for lunch, a little less sedated. REVIEW OF SYSTEMS: Ambulation impaired with walker. No CV, , pulmonary, eye, ENT system symptoms on review. Reliability poor. MENTAL STATUS EXAM: Oriented to herself and situation. Speech moderate latency, often responses monosyllabic, low in volume. Abstraction fair, computation impaired, language function intact. Mood and affect somewhat withdrawn. LABORATORY DATA: Reviewed. IMPRESSION: Bipolar 1 disorder, mixed, major neurocognitive disorder, Alzheimer, vascular with depression. PLAN: Keep the patient off Depakote. Continue rest unchanged from initial note. MAN Jorge GUTIERREZ MD DR: AMILCAR/leighton JOB#: [id number] / [id number]
--- NOTE | 2018-07-28 22:55 | PDOC ---
Exam Note: Gume Note: Please also refer to the separate dictated note~for this date of service dictated separately.~Patient seen individually. Discussed the patient with Nursing staff reviewed the chart.~Reviewed interim history and current functioning. Reviewed vital signs,~Labs/ Radiology~and current medications noted below. Continue current treatment with the changes noted in the dictated addendum note Assessment: Vital Signs: Vital Signs Date Time Temp Pulse Resp B/P (MAP) Pulse Ox O2 Delivery O2 Flow Rate FiO2 07/28/18 15:56 97.7 83 17 134/73 (93) 97 Room Air I&O Intake and Output 07/28/18 07:01 Intake Total 420 ml Balance 420 ml Intake Oral 420 ml # Voids 1 # Bowel Movements 1 Current Medications: Meds: Current Medications Acetaminophen (Tylenol) 650 mg PRN Q6HRS PRN PO PAIN / TEMP; Start 07/13/18 at 23:30 Multi-Ingredient Ointment (Analgesic [place]) 1 eleazar PRN QID PRN TP MUSCLE PAIN; Start 07/13/18 at 23:30 Al Hydroxide/Mg Hydroxide (Mylanta Plus Xs) 15 ml PRN AFTMEALHC PRN PO DYSPEPSIA; Start 07/13/18 at 23:30 Magnesium Hydroxide (Milk Of Magnesia) 2,400 mg PRN QHS PRN PO CONSTIPATION; Start 07/13/18 at 23:30 Citalopram Hydrobromide (CeleXA) 20 mg DAILY PO Last administered on at 07:30; Start 07/14/18 at 09:00; Stop 07/15/18 at 13:37; Status DC Cyanocobalamin (Vitamin B-12) 1,000 mcg DAILY PO Last administered on at 08:15; Start 07/14/18 at 09:00 Levothyroxine Sodium (Synthroid) 100 mcg DAILYAC PO Last administered on at 08:12; Start 07/14/18 at 07:30; Stop 07/14/18 at 18:53; Status DC Donepezil HCl (Aricept) 10 mg DAILY PO Last administered on 07/28/18at 08:14; Start 07/14/18 at 09:00 Memantine (Namenda) 10 mg DAILY PO Last administered on 07/16/18at 07:29; Start 07/14/18 at 09:00; Stop 07/16/18 at 20:19; Status DC Pantoprazole Sodium (Protonix) 40 mg BIDBFRMEAL PO Last administered on 17:42; Start 07/14/18 at 07:30 Venlafaxine HCl (Effexor) 50 mg TID PO Last administered on 07/17/18 19:30; Start 07/14/18 at 09:00; Stop 07/17/18 at 20:56; Status DC Furosemide (Lasix) 20 mg DAILY PO Last administered on 07/28/18 08:13; Start 07/14/18 at 09:00 Tramadol HCl (Ultram) 50 mg PRN TID PRN PO PAIN Last administered on 07/22/18 23:57; Start 07/14/18 at 01:15 Acetaminophen/ Hydrocodone Bitart (Lortab 5/325) 1 tab PRN Q6HRS PRN PO PAIN Last administered on 07/23/18 05:55; Start 07/14/18 at 01:15 Non-Formulary Medication (Iron Fum & Ps Cmp/Fa/Vit C/B3 (Integra F Capsule)) 1 each DAILY PO ; Start 07/14/18 at 09:00; Stop 07/15/18 at 16:24; Status DC Multivitamins/ Calcium (Thera-M Plus) 1 tab DAILY PO Last administered on 08:15; Start 07/14/18 at 09:00 Trimethoprim/ Sulfamethoxazole (Bactrim Ds) 1 tab BID PO Last administered on 07/15/18at 07:29; Start 07/14/18 at 09:00; Stop 07/15/18 at 18:43; Status DC Levothyroxine Sodium (Synthroid) 50 mcg DAILY06 PO Last administered on 05:56; Start 07/15/18 at 06:00 Lactobacillus Rhamnosus (Culturelle) 1 cap BID PO Last administered on 19:26; Start 07/15/18 at 09:00 Aripiprazole (Abilify) 2.5 mg DAILY PO Last administered on 07/28/18 08:14; Start 07/16/18 at 09:00 Ferrous Sulfate (Feosol) 325 mg BIDWMEALS PO Last administered on 07/28/18 17: 42; Start 07/15/18 at 17:00 Amoxicillin (Amoxil) 250 mg [id number] PO Last administered on 07/22/18 19:54; Start 07/15/18 at 21:00; Stop 07/22/18 at 22:00; Status DC Memantine (Namenda) 10 mg BID PO Last administered on 07/28/18 19:26; Start 07/16/18 at 20:30 Venlafaxine HCl (Effexor Xr) 150 mg DAILY PO Last administered on 07/28/18 08: 14; Start 07/18/18 at 09:00 Divalproex Sodium (Depakote Er) 500 mg QHS PO Last administered on 07/26/18 19: 36; Start 07/21/18 at 21:00; Stop 07/27/18 at 14:31; Status DC Active Scripts Active Reported Multivitamins (Multivitamin) 1 Each Tablet 1 Each PO DAILY Levothyroxine Sodium 100 Mcg Tablet 100 Mcg PO DAILYAC Vitamin B-12 (Cyanocobalamin (Vitamin B-12)) 1,000 Mcg Tablet 1,000 Mcg PO DAILY Celexa (Citalopram Hydrobromide) 20 Mg Tablet 20 Mg PO DAILY Tramadol Hcl (Tramadol HCl) 50 Mg Tablet 50 Mg PO PRN TID PRN Integra F Capsule (Iron Fum & Ps Cmp/Fa/Vit C/B3) 1 Each Capsule 1 Each PO DAILY Namenda (Memantine Hcl) 10 Mg Tablet 10 Mg PO DAILY Aricept (Donepezil Hcl) 10 Mg Tablet 10 Mg PO DAILY [place] 5-325 Tablet (Hydrocodone Bit/Acetaminophen) 1 Each Tablet 1 Tab PO PRN Q6HRS PRN Protonix (Pantoprazole Sodium) 40 Mg Tablet.dr 40 Mg PO BID Furosemide 20 Mg Tablet 20 Mg PO PRN DAILY PRN Venlafaxine Hcl Er (Venlafaxine Hcl) 150 Mg Tab.er.24 150 Mg PO DAILY I have reviewed the current psychotropics carefully including drug interactions. Risk benefit ratio favors no change other than as noted in my dictated progress note. Diagnosis: Problems: (1) Anxiety disorder (2) Bipolar affective disorder, mixed (3) Dementia, vascular, with delusions (4) Dementia, vascular, with depression (5) Dementia in Alzheimer's disease with delusions (6) Dementia in Alzheimer's disease with depression (7) Impulse control disorder JUAN PABLO GUTIERREZ MD Jul 28, 2018 22:55
[2018-07-29] MEDS: LEVOTHYROXINE 50 MCG TABLET PO SCH (05:02)
[2018-07-29 05:33] VITALS: BP 109/56
[2018-07-29] MEDS: FUROSEMIDE 20 MG TABLET PO SCH (07:53)
[2018-07-29] MEDS: MEMANTINE 10 MG TABLET. PO SCH ×2 (07:53→19:34)
[2018-07-29] MEDS: LACTOBACILLUS RHAMNOSUS GG 1 CAPSULE. PO SCH ×2 (07:53→19:34)
[2018-07-29] MEDS: MULTIVITAMIN with MINERAL TABLET. PO SCH (07:53)
[2018-07-29] MEDS: PANTOPRAZOLE 40 MG TABLET. PO SCH ×2 (07:53→17:28)
[2018-07-29] MEDS: DONEPEZIL HCL 10 MG TABLET PO SCH (07:53)
[2018-07-29] MEDS: CYANOCOBALAMIN (VITAMIN B-12) 1,000 MCG TABLET. PO SCH (07:53)
[2018-07-29] MEDS: FERROUS SULFATE 325 MG TABLET. PO SCH ×2 (07:53→17:28)
[2018-07-29] MEDS: ARIPiprazole 5 MG TABLET PO SCH (07:53)
[2018-07-29] MEDS: VENLAFAXINE XR 37.5 MG CAP.ER.24H. PO SCH (07:53)
[2018-07-29 09:33] LABS: BILIRUBIN,URINE NEG (NEG); CLARITY,URINE HAZY; COLOR,URINE AMBER; GLUCOSE,URINE NEG (NEG)
[2018-07-29 09:34] LABS: BACTERIA,URINE FEW /HPF (0-FEW); NITRITE,URINE NEG (NEG); SQUAMOUS EPITHELIAL CELL,UR FEW /LPF; UROBILINOGEN,URINE 4 mg/dL (0.2 mg/dL)
[2018-07-29 15:15] VITALS: BP 127/55
[2018-07-29] MEDS: DIVALPROEX ER 250 MG TAB.ER.24H. PO SCH (19:36)
--- NOTE | 2018-07-29 21:33 | PN ---
DATE: 07/29/2018 SUBJECTIVE: The patient was seen today, met with the staff, chart reviewed, also covering for Dr. Balderas. The patient continues to be depressed, recent UTI, expressing suicidal thoughts. OBSERVATION: VITAL SIGNS: Temperature 97.4, blood pressure 109/56, pulse 63, respirations 20, O2 sat 95%. Slept about 7 hours last night. MEDICATIONS: The patient's medications were reviewed. Currently on venlafaxine 150 mg daily, Namenda 10 mg b.i.d., Abilify 2.5 mg daily, Aricept 10 mg daily. LABORATORY DATA: The patient's lab reviewed. Her hemoglobin 11.4. All other of normal values except for slight elevation of AST 41. The patient is not having any side effects to the medications. ASSESSMENT: Dementia, most likely Alzheimer's with delusions, Bipolar affective disorder, mixed. PLAN: Continue with the current treatment. The patient just will be on Depakote 250 mg at night. Apparently, family member wants her to be back home on Depakote. AL ULLOA MD DR: MARTINEZ/leighton JOB#: [id number] / [id number]
[2018-07-30 06:15] VITALS: BP 131/63
[2018-07-30] MEDS: LEVOTHYROXINE 50 MCG TABLET PO SCH (06:25)
[2018-07-30 07:33] LABS: BASO % 1 % (0-3); EOS # 0.2 x10^3/uL (0.0-0.7); EOS % 5 % (0-3); HEMATOCRIT 33.8 % (36.0-47.0); HEMOGLOBIN 11.6 g/dL (12.0-15.5); LYMPH % 27 % (24-48); MEAN CORPUSCULAR HEMOGLOBIN 36 pg (25-35); MEAN CORPUSCULAR HGB CONC 34 g/dL (31-37); MEAN CORPUSCULAR VOLUME 104 fL (79-100); MONO # 0.5 x10^3/uL (0.0-1.1); MONO % 15 % (0-9); NEUT # 1.9 x10^3uL (1.8-7.7); NEUT % 52 % (31-73); PLATELET COUNT 75 x10^3/uL (140-400); RED BLOOD COUNT 3.26 x10^6/uL (3.50-5.40); RED CELL DISTRIBUTION WIDTH 13.9 % (11.5-14.5); WHITE BLOOD COUNT 3.6 x10^3/uL (4.0-11.0)
[2018-07-30] MEDS: MULTIVITAMIN with MINERAL TABLET. PO SCH (07:38)
[2018-07-30] MEDS: MEMANTINE 10 MG TABLET. PO SCH ×2 (07:38→19:48)
[2018-07-30] MEDS: FERROUS SULFATE 325 MG TABLET. PO SCH ×2 (07:38→17:00)
[2018-07-30] MEDS: FUROSEMIDE 20 MG TABLET PO SCH (07:38)
[2018-07-30] MEDS: ARIPiprazole 5 MG TABLET PO SCH (07:38)
[2018-07-30] MEDS: LACTOBACILLUS RHAMNOSUS GG 1 CAPSULE. PO SCH ×2 (07:38→19:48)
[2018-07-30] MEDS: VENLAFAXINE XR 37.5 MG CAP.ER.24H. PO SCH (07:38)
[2018-07-30] MEDS: CYANOCOBALAMIN (VITAMIN B-12) 1,000 MCG TABLET. PO SCH (07:38)
[2018-07-30] MEDS: DONEPEZIL HCL 10 MG TABLET PO SCH (07:38)
[2018-07-30] MEDS: PANTOPRAZOLE 40 MG TABLET. PO SCH ×2 (07:38→16:30)
[2018-07-30 07:45] LABS: ALBUMIN 2.5 g/dL (3.4-5.0); ALBUMIN/GLOBULIN RATIO 0.6 (1.0-1.7); CALCIUM 8.2 mg/dL (8.5-10.1); GFR 52.6; POTASSIUM 3.7 mmol/L (3.5-5.1); TOTAL BILIRUBIN 0.5 mg/dL (0.2-1.0); TOTAL PROTEIN 6.7 g/dL (6.4-8.2)
[2018-07-30 15:45] VITALS: BP 146/74
[2018-07-30] MEDS ORDERED: ARIP5TAB13 PO (16:04)
[2018-07-30] MEDS ORDERED: DIVA250T PO (16:05)
[2018-07-30] MEDS ORDERED: ACET325T9 PO (16:06)
[2018-07-30] MEDS ORDERED: LEVO50TA5 PO (16:08)
[2018-07-30] MEDS ORDERED: LACT1CAP21 PO (16:09)
[2018-07-30] MEDS ORDERED: MAG355OR12 PO (16:10)
[2018-07-30] MEDS ORDERED: MAGN2400 PO (16:10)
[2018-07-30] MEDS ORDERED: MENT113G6 TP (16:11)
[2018-07-30] MEDS: DIVALPROEX ER 250 MG TAB.ER.24H. PO SCH (19:48)
[2018-07-31] MEDS: LEVOTHYROXINE 50 MCG TABLET PO SCH (05:54)
[2018-07-31 06:04] VITALS: BP 135/57
[2018-07-31] MEDS: CYANOCOBALAMIN (VITAMIN B-12) 1,000 MCG TABLET. PO SCH (08:13)
[2018-07-31] MEDS: FUROSEMIDE 20 MG TABLET PO SCH (08:13)
[2018-07-31] MEDS: PANTOPRAZOLE 40 MG TABLET. PO SCH ×2 (08:13→17:58)
[2018-07-31] MEDS: LACTOBACILLUS RHAMNOSUS GG 1 CAPSULE. PO SCH ×2 (08:13→20:03)
[2018-07-31] MEDS: MULTIVITAMIN with MINERAL TABLET. PO SCH (08:13)
[2018-07-31] MEDS: VENLAFAXINE XR 37.5 MG CAP.ER.24H. PO SCH (08:13)
[2018-07-31] MEDS: MEMANTINE 10 MG TABLET. PO SCH ×2 (08:13→20:03)
[2018-07-31] MEDS: DONEPEZIL HCL 10 MG TABLET PO SCH (08:13)
[2018-07-31] MEDS: ARIPiprazole 5 MG TABLET PO SCH (08:13)
[2018-07-31] MEDS: FERROUS SULFATE 325 MG TABLET. PO SCH ×2 (08:13→17:58)
--- NOTE | 2018-07-31 13:48 | PN ---
DATE: 07/31/2018 SUBJECTIVE: The patient was seen today, met with the staff, chart reviewed. The patient denies of any physical complaints at this time. The patient has recent UTI. The patient has not verbalized any suicidal thoughts today. The patient is known to have aggressive behaviors including being physically combative with the family members, threatening with her cane. The patient denies of any falls. OBSERVATION: Vital signs: Temperature 98.9, blood pressure 135/57, pulse 64, respirations 20, O2 sat 97%. Slept about 4 hours last night. The patient's medications reviewed, currently on venlafaxine, Namenda, Abilify, and Aricept. The patient's lab all within the normal range. The patient is not having any major side effects. No falls. ASSESSMENT: 1. Dementia, most likely Alzheimer's with delusions. 2. Bipolar affective disorder, mixed. PLAN: To continue with the treatment. The patient is also on Depakote 250 mg at night. Apparently, it was started at the request of the family members. AL ULLOA MD DR: MARTINEZ/leighton JOB#: [id number] / [id number]
[2018-07-31 15:57] VITALS: BP 130/57
[2018-07-31] MEDS: DIVALPROEX ER 250 MG TAB.ER.24H. PO SCH (20:03)
[2018-07-31] MEDS: GABAPENTIN 100 MG CAPSULE. PO SCH (20:04)
[2018-08-01 05:56] VITALS: BP 102/56
[2018-08-01] MEDS: LEVOTHYROXINE 50 MCG TABLET PO SCH (06:14)
[2018-08-01] MEDS: PANTOPRAZOLE 40 MG TABLET. PO SCH ×2 (07:45→16:22)
[2018-08-01] MEDS: FERROUS SULFATE 325 MG TABLET. PO SCH ×2 (09:05→17:00)
[2018-08-01] MEDS: VENLAFAXINE XR 37.5 MG CAP.ER.24H. PO SCH (09:06)
[2018-08-01] MEDS: MEMANTINE 10 MG TABLET. PO SCH (09:06)
[2018-08-01] MEDS: ARIPiprazole 5 MG TABLET PO SCH (09:06)
[2018-08-01] MEDS: GABAPENTIN 100 MG CAPSULE. PO SCH ×2 (09:06→13:40)
[2018-08-01] MEDS: DONEPEZIL HCL 10 MG TABLET PO SCH (09:06)
[2018-08-01] MEDS: LACTOBACILLUS RHAMNOSUS GG 1 CAPSULE. PO SCH (09:06)
[2018-08-01] MEDS: MULTIVITAMIN with MINERAL TABLET. PO SCH (09:06)
[2018-08-01] MEDS: CYANOCOBALAMIN (VITAMIN B-12) 1,000 MCG TABLET. PO SCH (09:06)
[2018-08-01] MEDS: FUROSEMIDE 20 MG TABLET PO SCH (09:07)
--- NOTE | 2018-08-02 09:06 | PDOC ---
Exam Note: Gume Note: VS - Last 72 Hours, by Label Date Time Temp Pulse Resp B/P (MAP) Pulse Ox O2 Delivery O2 Flow Rate FiO2 08/01/18 05:56 97.2 64 16 102/56 (71) 95 07/31/18 15:57 97.4 69 16 130/57 (81) 95 07/31/18 06:04 98.9 64 20 135/57 (83) 97 07/30/18 15:45 97.5 80 20 146/74 (98) 98 Late entry for DOD 08/01/2018. Please also refer to the separate dictated note~ for this date of service dictated separately.~Patient seen individually. Discussed the patient with Nursing staff reviewed the chart.~Reviewed interim history and current functioning. Reviewed vital signs,~Labs/ Radiology~and current medications noted below. Continue current treatment with the changes noted in the dictated addendum note Assessment: Vital Signs: Vital Signs Date Time Temp Pulse Resp B/P (MAP) Pulse Ox O2 Delivery O2 Flow Rate FiO2 08/01/18 05:56 97.2 64 16 102/56 (71) 95 07/28/18 15:56 Room Air I&O Intake and Output 08/02/18 07:01 Intake Total 720 ml Balance 720 ml Intake Oral 720 ml # Bowel Movements 1 Current Medications: Meds: Current Medications Acetaminophen (Tylenol) 650 mg PRN Q6HRS PRN PO PAIN / TEMP; Start 07/13/18 at 23:30; Stop 08/01/18 at 18:01; Status DC Multi-Ingredient Ointment (Analgesic [place]) 1 eleazar PRN QID PRN TP MUSCLE PAIN; Start 07/13/18 at 23:30; Stop 08/01/18 at 18:01; Status DC Al Hydroxide/Mg Hydroxide (Mylanta Plus Xs) 15 ml PRN AFTMEALHC PRN PO DYSPEPSIA; Start 07/13/18 at 23:30; Stop 08/01/18 at 18:01; Status DC Magnesium Hydroxide (Milk Of Magnesia) 2,400 mg PRN QHS PRN PO CONSTIPATION; Start 07/13/18 at 23:30; Stop 08/01/18 at 18:01; Status DC Citalopram Hydrobromide (CeleXA) 20 mg DAILY PO Last administered on at 07:30; Start 07/14/18 at 09:00; Stop 07/15/18 at 13:37; Status DC Cyanocobalamin (Vitamin B-12) 1,000 mcg DAILY PO Last administered on 09:06; Start 07/14/18 at 09:00; Stop 08/01/18 at 18:01; Status DC Levothyroxine Sodium (Synthroid) 100 mcg DAILYAC PO Last administered on at 08:12; Start 07/14/18 at 07:30; Stop 07/14/18 at 18:53; Status DC Donepezil HCl (Aricept) 10 mg DAILY PO Last administered on 08/01/18 09:06; Start 07/14/18 at 09:00; Stop 08/01/18 at 18:01; Status DC Memantine (Namenda) 10 mg DAILY PO Last administered on 07/16/18at 07:29; Start 07/14/18 at 09:00; Stop 07/16/18 at 20:19; Status DC Pantoprazole Sodium (Protonix) 40 mg BIDBFRMEAL PO Last administered on 16:22; Start 07/14/18 at 07:30; Stop 08/01/18 at 18:01; Status DC Venlafaxine HCl (Effexor) 50 mg TID PO Last administered on 07/17/18 19:30; Start 07/14/18 at 09:00; Stop 07/17/18 at 20:56; Status DC Furosemide (Lasix) 20 mg DAILY PO Last administered on 08/01/18 09:07; Start 07/14/18 at 09:00; Stop 08/01/18 at 18:01; Status DC Tramadol HCl (Ultram) 50 mg PRN TID PRN PO PAIN Last administered on 07/22/18 23:57; Start 07/14/18 at 01:15; Stop 08/01/18 at 18:01; Status DC Acetaminophen/ Hydrocodone Bitart (Lortab 5/325) 1 tab PRN Q6HRS PRN PO PAIN Last administered on 07/23/18 05:55; Start 07/14/18 at 01:15; Stop 08/01/18 at 18:01; Status DC Non-Formulary Medication (Iron Fum & Ps Cmp/Fa/Vit C/B3 (Integra F Capsule)) 1 each DAILY PO ; Start 07/14/18 at 09:00; Stop 07/15/18 at 16:24; Status DC Multivitamins/ Calcium (Thera-M Plus) 1 tab DAILY PO Last administered on 09:06; Start 07/14/18 at 09:00; Stop 08/01/18 at 18:01; Status DC Trimethoprim/ Sulfamethoxazole (Bactrim Ds) 1 tab BID PO Last administered on 07/15/18at 07:29; Start 07/14/18 at 09:00; Stop 07/15/18 at 18:43; Status DC Levothyroxine Sodium (Synthroid) 50 mcg DAILY06 PO Last administered on 06:14; Start 07/15/18 at 06:00; Stop 08/01/18 at 18:01; Status DC Lactobacillus Rhamnosus (Culturelle) 1 cap BID PO Last administered on 09:06; Start 07/15/18 at 09:00; Stop 08/01/18 at 18:01; Status DC Aripiprazole (Abilify) 2.5 mg DAILY PO Last administered on 08/01/18 09:06; Start 07/16/18 at 09:00; Stop 08/01/18 at 18:01; Status DC Ferrous Sulfate (Feosol) 325 mg BIDWMEALS PO Last administered on 08/01/18 09: 05; Start 07/15/18 at 17:00; Stop 08/01/18 at 18:01; Status DC Amoxicillin (Amoxil) 250 mg [id number] PO Last administered on 07/22/18 19:54; Start 07/15/18 at 21:00; Stop 07/22/18 at 22:00; Status DC Memantine (Namenda) 10 mg BID PO Last administered on 08/01/18 09:06; Start 07/16/18 at 20:30; Stop 08/01/18 at 18:01; Status DC Venlafaxine HCl (Effexor Xr) 150 mg DAILY PO Last administered on 08/01/18 09: 06; Start 07/18/18 at 09:00; Stop 08/01/18 at 18:01; Status DC Divalproex Sodium (Depakote Er) 500 mg QHS PO Last administered on 07/26/18at 19: 36; Start 07/21/18 at 21:00; Stop 07/27/18 at 14:31; Status DC Divalproex Sodium (Depakote Er) 250 mg QHS PO Last administered on 07/31/18at 20 :03; Start 07/29/18 at 21:00; Stop 08/01/18 at 18:01; Status DC Gabapentin (Neurontin) 100 mg TID PO Last administered on 08/01/18at 13:40; Start 07/31/18 at 21:00; Stop 08/01/18 at 18:01; Status DC Active Scripts Active Reported [place] (Menthol) 113 Gm Gel..gram. 1 Applic TP PRN QID PRN Milk Of Magnesia (Magnesium Hydroxide) 2,400 Mg/10 Ml Oral.susp 2,400 Mg PO PRN QHS PRN Maalox Maximum Strength Susp (Mag Hydrox/Al Hydrox/Simeth) 355 Ml Oral.susp 15 Ml PO PRN AFTMEALHC PRN Culturelle (Lactobacillus Rhamnosus Gg) 1 Each Capsule 1 Each PO BID Levothyroxine Sodium 50 Mcg Tablet 50 Mcg PO DAILY06 Tylenol (Acetaminophen) 325 Mg Tablet 650 Mg PO PRN Q6HRS PRN Depakote Er (Divalproex Sodium) 250 Mg Tab.er.24h 250 Mg PO HS Abilify (Aripiprazole) 5 Mg Tablet 2.5 Mg PO DAILY Multivitamins (Multivitamin) 1 Each Tablet 1 Each PO DAILY Vitamin B-12 (Cyanocobalamin (Vitamin B-12)) 1,000 Mcg Tablet 1,000 Mcg PO DAILY Tramadol Hcl (Tramadol HCl) 50 Mg Tablet 50 Mg PO PRN TID PRN Integra F Capsule (Iron Fum & Ps Cmp/Fa/Vit C/B3) 1 Each Capsule 1 Each PO DAILY Namenda (Memantine Hcl) 10 Mg Tablet 10 Mg PO BID Aricept (Donepezil Hcl) 10 Mg Tablet 10 Mg PO DAILY Lexa 5-325 Tablet (Hydrocodone Bit/Acetaminophen) 1 Each Tablet 1 Tab PO PRN Q6HRS PRN Protonix (Pantoprazole Sodium) 40 Mg Tablet.dr 40 Mg PO BIDBFRMEAL Furosemide 20 Mg Tablet 20 Mg PO DAILY PRN Venlafaxine Hcl Er (Venlafaxine Hcl) 150 Mg Tab.er.24 150 Mg PO DAILY I have reviewed the current psychotropics carefully including drug interactions. Risk benefit ratio favors no change other than as noted in my dictated progress note. 

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
== END 2018-08-01 17:30 | disposition home health service (06) | DRG 885 ==
LOC: GEROPSY 19:56
PROVIDERS: ADMIT Psychiatry & Neurology Psychiatry; ATTEND Psychiatry & Neurology Psychiatry
DX: F31.60 Bipolar disorder, current episode mixed, unspecified (principal); E43 Unspecified severe protein-calorie malnutrition; D61.818 Other pancytopenia; E05.90 Thyrotoxicosis, unspecified without thyrotoxic crisis or storm; E78.5 Hyperlipidemia, unspecified; F01.50 Vascular dementia, unspecified severity, without behavioral disturbance, psychotic disturbance, mood disturbance, and anxiety; F02.80 Dementia in other diseases classified elsewhere, unspecified severity, without behavioral disturbance, psychotic disturbance, mood disturbance, and anxiety; F41.9 Anxiety disorder, unspecified; F63.9 Impulse disorder, unspecified; G30.9 Alzheimer's disease, unspecified; G62.9 Polyneuropathy, unspecified; I11.0 Hypertensive heart disease with heart failure; I48.91 Unspecified atrial fibrillation; I50.9 Heart failure, unspecified; K21.9 Gastro-esophageal reflux disease without esophagitis; Z68.24 Body mass index [BMI] 24.0-24.9, adult
CPT/HCPCS: 36415; 70450; 80053; 80061; 80164; 81001; 82306; 82607; 83036; 83540; 83550; 83735; 84436; 84439; 84443; 84480; 85025; 86592; 87086; 87186; 93005